=== PATIENT | female | born 2000 | race Caucasian/White ===

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

== ENCOUNTER → 2018-04-18 | Outpatient (CLI) | payer OTHER ==
[~2018-04-18] MED LIST changes: +INFLIXIMAB-DYYB 500 MG in SODIUM CHLORIDE 0.9% 250 ML IV NR; -INFLIXIMAB-DYYB 500 MG in SODIUM CHLORIDE 0.9% 250 ML IV ONE; -LORATADINE 10 MG TAB PO PRN; +LORATADINE 10 MG TAB PO STA; +SODIUM CHLORIDE 0.9% 500 ML 500 ML in EMPTY BAG 1 BAG IV PRN; -SODIUM CHLORIDE 0.9% 500 ML in EMPTY BAG 1 BAG IV PRN
[2018-04-18 10:34] VITALS: RESP 16; TEMP 98.6
[2018-04-18 11:44] VITALS: BP 120/88; PULSE 79
== END ==
LOC: PROCWHC3 09:50
PROVIDERS: ATTEND Internal Medicine Gastroenterology
DX: K50.10 Crohn's disease of large intestine without complications (principal)
CPT/HCPCS: 96413; 96415; Q5103

== ENCOUNTER → 2018-06-13 | Outpatient (CLI) | payer OTHER ==
[~2018-06-13] MED LIST changes: +LORATADINE 10 MG TAB PO PRN; -LORATADINE 10 MG TAB PO STA
[2018-06-13 10:37] VITALS: RESP 16; TEMP 98.5
[2018-06-13 12:20] VITALS: BP 104/51; PULSE 68
== END ==
LOC: PROCWHC3 10:14
PROVIDERS: ATTEND Internal Medicine Gastroenterology
DX: K50.10 Crohn's disease of large intestine without complications (principal)
CPT/HCPCS: 96413; 96415; Q5103

== ENCOUNTER 2018-07-25 09:46 | Day surgery (SDC) | payer OTHER ==
[2018-07-23 12:35] VITALS: BMI 32.8
[~2018-07-25 09:46] MED LIST changes: -ACETAMINOPHEN TAB 500 MG TAB PO PRN; -INFLIXIMAB-DYYB 500 MG in SODIUM CHLORIDE 0.9% 250 ML IV NR; +LACTATED RINGERS 1,000 ML IV SCH; -LORATADINE 10 MG TAB PO PRN; -SODIUM CHLORIDE 0.9% 500 ML 500 ML in EMPTY BAG 1 BAG IV PRN
[2018-07-25] MEDS ORDERED: LIDOCAINE 1% 20 ML VIAL (10MG/ML) FOR IV START INTRADERMA ONE (10:28)
[2018-07-25 10:39] VITALS: TEMP 97.7
[2018-07-25] MEDS ORDERED: PROPOFOL 10 MG/ML 20 ML VIAL IV ONE (11:28)
--- NOTE | 2018-07-25 11:49 | P.PCN ---
Date of Procedure: 07/25/18 Procedure(s) Performed: BRIEF HISTORY: Patient is a 18-year-old pleasant 8 female, scheduled for an elective colonoscopy as a part of surveillance of long-standing history of Crohn 's colitis who was diagnosed at age 9. She is presently maintained on Remicade infusions every 8 weeks and Imuran 100 mg daily. Prescription for a surveillance colonoscopy today. PROCEDURE PERFORMED: Colonoscopy with random biopsies and snare polypectomy. PREOPERATIVE DIAGNOSIS: Long-standing history of Crohn's colitis. IV sedation per Anesthesia. PROCEDURE: After informed consent was obtained, the patient, was brought into the endoscopy unit. IV sedation was administered by Anesthesia under continuous monitoring. Digital rectal examination was normal. Initially the Olympus CF- 160 flexible video colonoscope was then inserted in the rectum, gradually advanced into the cecum without any difficulty. Careful examination was performed as the scope was gradually being withdrawn. Ileocecal valve and the appendiceal orifice were visualized and appeared normal. Prep was excellent. Mucosa of the cecum, ascending colon, transverse colon, descending colon, sigmoid colon, and rectum had mucosal changes with erythema, friability granularity and spontaneous oozing consistent with active colitis which are more prominent in the rectum sigmoid colon and descending colon.. Random biopsies were done at every 10 cm intervals from cecum to rectum. In the descending colon was a 1 cm polyp that was removed by snare polypectomy. Retroflexion was performed in the rectum and no lesions were seen. The patient tolerated the procedure well. IMPRESSION: Diffuse active colitis the entire colon more predominant in the rectum, sigmoid and descending colon with mucosal erythema, friability granularity and spontaneous oozing status post multiple biopsies 1 cm descending colon polyp status post polypectomy RECOMMENDATIONS: Findings of this examination were discussed with the patient as well as a family. She was advised to follow with the biopsy results. She will continue with Remicade infusions as well as Imuran 20 mg daily. We'll start her on prednisone 30 mg daily and was advised to taper by 5 mg every 1 week. She'll be seen in the office in 6 weeks..
[2018-07-25 12:10] VITALS: BP 110/55; PULSE 67; RESP 18
== END 2018-07-25 12:37 | disposition home or self-care (01) ==
LOC: ORWHC2ENDO 09:46
PROVIDERS: ATTEND Internal Medicine Gastroenterology
DX: K52.9 Noninfective gastroenteritis and colitis, unspecified (principal); K63.5 Polyp of colon; K50.10 Crohn's disease of large intestine without complications; K63.3 Ulcer of intestine; K21.9 Gastro-esophageal reflux disease without esophagitis; Z79.899 Other long term (current) drug therapy
CPT/HCPCS: 81025; 88305; 45380; 45385; J2704

== ENCOUNTER → 2018-08-08 | Outpatient (CLI) | payer OTHER ==
[~2018-08-08] MED LIST changes: +ACETAMINOPHEN TAB 500 MG TAB PO STA; +INFLIXIMAB-DYYB 500 MG in SODIUM CHLORIDE 0.9% 250 ML IV ONE; -LACTATED RINGERS 1,000 ML IV SCH; +LORATADINE 10 MG TAB PO STA; +SODIUM CHLORIDE 0.9% 500 ML 500 ML in EMPTY BAG 1 BAG IV PRN
[2018-08-08 10:00] VITALS: TEMP 98.7
[2018-08-08 10:25] LABS: Basophils # (A) 0.1 k/uL (0-0.2); Basophils % (A) 1 %; Eosinophils # (A) 0.6 k/uL (0-0.7); Eosinophils % (A) 6 %; HCT 35.1 % (34.0-46.0); Hypochromasia Slight; Lymphocytes # (A) 2.3 k/uL (1.0-4.8); Lymphocytes % (A) 23 %; MCH 24.7 pg (25.0-35.0); MCHC 31.2 g/dL (31.0-37.0); MCV 79.2 fL (80.0-100.0); Mean Platelet Volume 6.2; Monocytes # (A) 0.5 k/uL (0-1.0); Monocytes % (A) 5 %; Neutrophils # (A) 6.2 k/uL (1.3-7.7); Neutrophils % (A) 64 %; Platelet Count 438 k/uL (150-450); RBC 4.43 m/uL (3.80-5.40); RDW 14.6 % (11.5-15.5); WBC 9.7 k/uL (4.0-11.0)
[2018-08-08 10:31] LABS: ALT 20 U/L (9-52); AST 13 U/L (14-36); Albumin 3.9 g/dL (3.5-5.0); Alkaline Phosphatase 86 U/L (38-126); Anion Gap 10 mmol/L; Blood Urea Nitrogen 18 mg/dL (7-17); Calcium 8.9 mg/dL (8.4-10.2); Carbon Dioxide 24 mmol/L (22-30); Chloride 107 mmol/L (98-107); Glucose 104 mg/dL (74-99); Sodium 141 mmol/L (137-145); Total Bilirubin 0.3 mg/dL (0.2-1.3); Total Protein 7.5 g/dL (6.3-8.2)
[2018-08-08 11:28] VITALS: RESP 18
[2018-08-08 11:55] VITALS: BP 109/72; PULSE 90
== END | disposition home or self-care (01) ==
LOC: PROCWHC3 09:17
PROVIDERS: ATTEND Internal Medicine Gastroenterology
DX: K50.10 Crohn's disease of large intestine without complications (principal)
CPT/HCPCS: 80053; 85025; 96413; 96415; Q5103

== ENCOUNTER → 2018-10-03 | Outpatient (CLI) | payer OTHER ==
[~2018-10-03] MED LIST changes: +ACETAMINOPHEN TAB 500 MG TAB PO ONE; -ACETAMINOPHEN TAB 500 MG TAB PO STA; +INFLIXIMAB-DYYB 500 MG in SODIUM CHLORIDE 0.9% 200 ML IV NR; -INFLIXIMAB-DYYB 500 MG in SODIUM CHLORIDE 0.9% 250 ML IV ONE; +LORATADINE 10 MG TAB PO ONE; -LORATADINE 10 MG TAB PO STA
[2018-10-03 08:37] VITALS: TEMP 98.5
[2018-10-03 10:04] VITALS: BP 95/69; PULSE 60; RESP 16
== END ==
LOC: PROCWHC3 07:58
PROVIDERS: ATTEND Internal Medicine Gastroenterology
DX: K50.10 Crohn's disease of large intestine without complications (principal)
CPT/HCPCS: 96413; 96415; Q5103

== ENCOUNTER 2018-11-19 09:45 | Emergency (ER) | payer OTHER ==
[2018-11-19 09:50] VITALS: RESP 18
[2018-11-19] MEDS ORDERED: KETOROLAC 30 MG/ML 1 ML VIAL IVP STA (10:28)
[2018-11-19] MEDS ORDERED: SODIUM CHLORIDE 0.9% 1,000 ML IV STA ×2 (10:28)
--- NOTE | 2018-11-19 10:31 | ED ---
Abdominal Pain HPI - General Chief Complaint: Abdominal Pain Stated Complaint: SOB, ankle pain Time Seen by Provider: 11/19/18 10:02 Source: patient, RN notes reviewed, old records reviewed Mode of arrival: ambulatory Limitations: no limitations - History of Present Illness Initial Comments: Patient is a 18-year-old female presents emergency department today for evaluation with complaints of left sided pleuritic chest pain and taking a deep breath, and left upper abdominal pain. She reports she's had symptoms for the past 2 days. Patient states that she has had no history of blood clots. Surgical history for cleft palate, as well as a history of Crohn's disease. She states this does not feel like her previous Crohn's flareup such pain is typ ically lower. Patient states that she's had no hemoptysis. She is on Depoprovera. She is a nonsmoker. - Related Data Home Medications Medication Instructions Recorded Confirmed Ranitidine HCl 150 mg PO BID 08/26/15 11/19/18 azaTHIOprine [Imuran] 100 mg PO DAILY 08/26/15 11/19/18 Medroxyprogesterone Acetate 150 mg IM Q84D 11/19/18 11/19/18 [Depo-Provera] Previous Rx's Medication Instructions Recorded Nitrofurantoin Monohyd/M-Cryst 100 mg PO Q12HR #14 cap 11/19/18 [Macrobid] Allergies Allergy/AdvReac Type Severity Reaction Status Date / Time No Known Allergies Allergy Verified 11/19/18 09:57 Review of Systems ROS Statement: Those systems with pertinent positive or pertinent negative responses have been documented in the HPI. ROS Other: All systems not noted in ROS Statement are negative. Past Medical History Past Medical History: GERD/Reflux Additional Past Medical History / Comment(s): Crohns dx. COLITIS AND POLYPS. History of Any Multi-Drug Resistant Organisms: None Reported Additional Past Surgical History / Comment(s): cleft pallet. colonoscopies WITH 3 POLYPS REMOVED. Past Anesthesia/Blood Transfusion Reactions: No Reported Reaction Past Psychological History: No Psychological Hx Reported Smoking Status: Never smoker Past Alcohol Use History: None Reported Past Drug Use History: None Reported - Past Family History Mother Family Medical History: No Reported History General Exam - General Exam Comments Initial Comments: This is a 18-year-old female. Alert and oriented. No distress. Limitations: no limitations General appearance: alert, in no apparent distress Head exam: Present: atraumatic, normocephalic, normal inspection Eye exam: Present: normal appearance, PERRL, EOMI. Absent: scleral icterus, conjunctival injection, periorbital swelling ENT exam: Present: normal exam, mucous membranes moist Neck exam: Present: normal inspection. Absent: tenderness, meningismus, lymphadenopathy Respiratory exam: Present: normal lung sounds bilaterally. Absent: respiratory distress, wheezes, rales, rhonchi, stridor Cardiovascular Exam: Present: regular rate, normal rhythm, normal heart sounds. Absent: systolic murmur, diastolic murmur, rubs, gallop, clicks GI/Abdominal exam: Present: soft, normal bowel sounds. Absent: distended, tenderness, guarding, rebound, rigid Extremities exam: Present: normal inspection, full ROM, normal capillary refill. Absent: tenderness, pedal edema, joint swelling, calf tenderness Back exam: Present: normal inspection Neurological exam: Present: alert, oriented X3, CN II-XII intact Psychiatric exam: Present: normal mood Skin exam: Present: warm, dry, intact, normal color. Absent: rash Course Vital Signs 11/19/18 11/19/18 11/19/18 09:47 11:30 12:00 Temperature 98.5 F Pulse Rate 107 H Respiratory 18 18 18 Rate Blood Pressure 115/61 109/67 106/57 O2 Sat by Pulse 98 98 100 Oximetry 11/19/18 11/19/18 11/19/18 12:30 13:02 13:30 Temperature Pulse Rate 90 90 Respiratory 18 18 18 Rate Blood Pressure 105/63 105/60 O2 Sat by Pulse 97 97 Oximetry Medical Decision Making - Medical Decision Making Patient is a 18-year-old female presents emergency department today for evaluation for left-sided pleuritic chest pain taking breath. She states that said no nausea or vomiting. Patient is given IV fluids are obtained. Urinalysis did show some red blood cells and white blood cells. She denies any specific back pain or concerns for kidney stone type eating. Patient will EKG is reviewed and negative for any acute changes. Patient's time or was elevated. CT [place] [facility] chest was completed to rule out PE. This was negative for PE. Patient informed that her pain is most likely musculoskeletal in nature. I discussed that Patient continue Motrin Tylenol. I will put the Patient on antibiotics to treat for UTI until urine culture completed. Patient understands treatment plan will comply. Return parameters were discussed. - Lab Data Result diagrams: 11/19/18 10:50 11/19/18 10:50 Lab Results 11/19/18 11/19/18 11/19/18 Range/Units 10:50 10:50 10:50 WBC 10.1 (4.0-11.0) k/uL RBC 4.43 (3.80-5.40) m/uL Hgb 10.4 L (11.4-16.0) gm/dL Hct 32.6 L (34.0-46.0) % MCV 73.5 L (80.0-100.0) fL MCH 23.5 L (25.0-35.0) pg MCHC 32.0 (31.0-37.0) g/dL RDW 13.6 (11.5-15.5) % Plt Count 498 H (150-450) k/uL Neutrophils % 77 % Lymphocytes % 13 % Monocytes % 5 % Eosinophils % 4 % Basophils % 1 % Neutrophils # 7.8 H (1.3-7.7) k/uL Lymphocytes # 1.3 (1.0-4.8) k/uL Monocytes # 0.5 (0-1.0) k/uL Eosinophils # 0.4 (0-0.7) k/uL Basophils # 0.1 (0-0.2) k/uL Hypochromasia Moderate Microcytosis Slight PT 10.0 (9.0-12.0) sec INR 0.9 (<1.2) APTT 25.0 (22.0-30.0) sec D-Dimer 3.23 H (<0.60) mg/L FEU Sodium 140 (137-145) mmol/L Potassium 4.4 (3.5-5.1) mmol/L Chloride 107 (98-107) mmol/L Carbon Dioxide 22 (22-30) mmol/L Anion Gap 11 mmol/L BUN 9 (7-17) mg/dL Creatinine 0.73 (0.52-1.04) mg/dL Est GFR (CKD-EPI)AfAm >90 (>60 ml/min/1.73 sqM) Est GFR (CKD-EPI)NonAf >90 (>60 ml/min/1.73 sqM) Glucose 94 (74-99) mg/dL Calcium 9.0 (8.4-10.2) mg/dL Total Bilirubin 0.3 (0.2-1.3) mg/dL AST 18 (14-36) U/L ALT <6 L (9-52) U/L Alkaline Phosphatase 73 (38-126) U/L Total Protein 7.6 (6.3-8.2) g/dL Albumin 3.9 (3.5-5.0) g/dL Amylase 59 (30-110) U/L Lipase 117 (23-300) U/L Urine Color Urine Appearance (Clear) Urine pH (5.0-8.0) Ur Specific [place] (1.001-1.035) Urine Protein (Negative) Urine Glucose (UA) (Negative) Urine Ketones (Negative) Urine Blood (Negative) Urine Nitrite (Negative) Urine Bilirubin (Negative) Urine Urobilinogen (<2.0) mg/dL Ur Leukocyte Esterase (Negative) Urine RBC (0-5) /hpf Urine WBC (0-5) /hpf Ur Squamous Epith Cells (0-4) /hpf Urine Bacteria (None) /hpf Urine Mucus (None) /hpf 11/19/18 Range/Units 10:50 WBC (4.0-11.0) k/uL RBC (3.80-5.40) m/uL Hgb (11.4-16.0) gm/dL Hct (34.0-46.0) % MCV (80.0-100.0) fL MCH (25.0-35.0) pg MCHC (31.0-37.0) g/dL RDW (11.5-15.5) % Plt Count (150-450) k/uL Neutrophils % % Lymphocytes % % Monocytes % % Eosinophils % % Basophils % % Neutrophils # (1.3-7.7) k/uL Lymphocytes # (1.0-4.8) k/uL Monocytes # (0-1.0) k/uL Eosinophils # (0-0.7) k/uL Basophils # (0-0.2) k/uL Hypochromasia Microcytosis PT (9.0-12.0) sec INR (<1.2) APTT (22.0-30.0) sec D-Dimer (<0.60) mg/L FEU Sodium (137-145) mmol/L Potassium (3.5-5.1) mmol/L Chloride (98-107) mmol/L Carbon Dioxide (22-30) mmol/L Anion Gap mmol/L BUN (7-17) mg/dL Creatinine (0.52-1.04) mg/dL Est GFR (CKD-EPI)AfAm (>60 ml/min/1.73 sqM) Est GFR (CKD-EPI)NonAf (>60 ml/min/1.73 sqM) Glucose (74-99) mg/dL Calcium (8.4-10.2) mg/dL Total Bilirubin (0.2-1.3) mg/dL AST (14-36) U/L ALT (9-52) U/L Alkaline Phosphatase (38-126) U/L Total Protein (6.3-8.2) g/dL Albumin (3.5-5.0) g/dL Amylase (30-110) U/L Lipase (23-300) U/L Urine Color Yellow Urine Appearance Cloudy H (Clear) Urine pH 5.5 (5.0-8.0) Ur Specific [place] 1.038 H (1.001-1.035) Urine Protein 1+ H (Negative) Urine Glucose (UA) Negative (Negative) Urine Ketones Negative (Negative) Urine Blood Moderate H (Negative) Urine Nitrite Negative (Negative) Urine Bilirubin Negative (Negative) Urine Urobilinogen <2.0 (<2.0) mg/dL Ur Leukocyte Esterase Moderate H (Negative) Urine RBC 21 H (0-5) /hpf Urine WBC 7 H (0-5) /hpf Ur Squamous Epith Cells 16 H (0-4) /hpf Urine Bacteria Occasional H (None) /hpf Urine Mucus Many H (None) /hpf 11/19/18 11:20 EKG performed at 1104 shows normal sinus rhythm possible inferior infarct age indeterminate. Ventricular rate of 77 bpm. Was 1:30 milliseconds. QS duration 70 ms. QT QTc is 394/445 ms. No evidence of ST elevation. - Radiology Data Radiology results: report reviewed Normal chest x-ray. CT [facility] chest is negative for PE. Disposition Clinical Impression: Pleuritic chest pain, UTI (urinary tract infection) Disposition: HOME SELF-CARE Condition: Good Instructions (If sedation given, give patient instructions): Pleurisy (ED), Urinary Tract Infection in Women (ED) Additional Instructions: Patient is to take Motrin Tylenol for pain. Complete her antibiotic prescription. Return to the emergency department if any alarming signs or symptoms occur. Prescriptions: Nitrofurantoin Monohyd/M-Cryst [Macrobid] 100 mg PO Q12HR #14 cap Is patient prescribed a controlled substance at d/c from ED?: No Referrals: Barry Cabral DO [Primary Care Provider] - 1-2 days Time of Disposition: 13:43
[2018-11-19 11:06] LABS: Basophils # (A) 0.1 k/uL (0-0.2); Basophils % (A) 1 %; Eosinophils # (A) 0.4 k/uL (0-0.7); Eosinophils % (A) 4 %; HCT 32.6 % (34.0-46.0); HGB 10.4 gm/dL (11.4-16.0); Hypochromasia Moderate; Lymphocytes # (A) 1.3 k/uL (1.0-4.8); Lymphocytes % (A) 13 %; MCH 23.5 pg (25.0-35.0); MCV 73.5 fL (80.0-100.0); Mean Platelet Volume 6.4; Microcytosis Slight; Monocytes # (A) 0.5 k/uL (0-1.0); Monocytes % (A) 5 %; Neutrophils # (A) 7.8 k/uL (1.3-7.7); Neutrophils % (A) 77 %; Platelet Count 498 k/uL (150-450); RBC 4.43 m/uL (3.80-5.40); RDW 13.6 % (11.5-15.5); WBC 10.1 k/uL (4.0-11.0)
[2018-11-19 11:11] LABS: Appearance,Urine Cloudy (Clear); Bacteria,Urine Occasional /hpf; Bilirubin,Urine Negative (Negative); Blood,Urine Moderate (Negative); Color,Urine Yellow; Glucose,Urine (UA) Negative (Negative); Ketones,Urine Negative (Negative); Leukocyte Esterase,Urine Moderate (Negative); Mucus,Urine Many /hpf; Nitrite,Urine Negative (Negative); PH, Urine 5.5 (5.0-8.0); Protein,Urine 1+ (Negative); RBC,Urine 21 /hpf (0-5); Specific Gravity,Urine 1.038 (1.001-1.035); Squamous Epithelial Cell,Urine 16 /hpf (0-4); Urobilinogen,Urine <2.0 mg/dL (<2.0); WBC,Urine 7 /hpf (0-5)
[2018-11-19 11:21] LABS: ALT <6 U/L (9-52); AST 18 U/L (14-36); Albumin 3.9 g/dL (3.5-5.0); Alkaline Phosphatase 73 U/L (38-126); Amylase 59 U/L (30-110); Anion Gap 11 mmol/L; Blood Urea Nitrogen 9 mg/dL (7-17); Carbon Dioxide 22 mmol/L (22-30); Chloride 107 mmol/L (98-107); Glucose 94 mg/dL (74-99); Lipase 117 U/L (23-300); Potassium 4.4 mmol/L (3.5-5.1); Sodium 140 mmol/L (137-145); Total Bilirubin 0.3 mg/dL (0.2-1.3); Total Protein 7.6 g/dL (6.3-8.2)
--- NOTE | 2018-11-19 11:24 | XR ---
EXAMINATION TYPE: XR chest 2V DATE OF EXAM: 11/19/2018 COMPARISON: NONE HISTORY: Abdominal and chest pain TECHNIQUE: Frontal and lateral views of the chest are obtained. FINDINGS: There is no focal air space opacity, pleural effusion, or pneumothorax seen. The cardiac silhouette size is within normal limits. The osseous structures are intact. IMPRESSION: No acute cardiopulmonary process.
[2018-11-19 11:26] LABS: INR 0.9 (<1.2)
[2018-11-19 11:58] LABS: D-Dimer 3.23 mg/L FEU (<0.60)
--- NOTE | 2018-11-19 12:41 | CT ---
EXAMINATION TYPE: CT angio chest DATE OF EXAM: 11/19/2018 COMPARISON: NONE HISTORY: SOB, Chest pain, elevated d dimer CT DLP: 264.8 mGycm. Automated Exposure Control for Dose Reduction was Utilized. CONTRAST: CTA scan of the thorax is performed with IV Contrast, patient injected with 80 mL of Isovue 370, pulm onary embolism protocol. MIP Images are created on CT scanner and reviewed. FINDINGS: LUNGS: The lungs are grossly clear, there is no concerning parenchymal mass or nodule identified. T here is no pleural effusion or pneumothorax seen. The tracheobronchial tree is patent. MEDIASTINUM: There is satisfactory enhancement of the pulmonary artery and its branches, there is no CT evidence for pulmonary embolism. There are no greater than 1 cm hilar or mediastinal lymph nodes. No cardiomegaly or pericardial effusion is seen. Some residual soft tissue anterior superior media stinum is felt to reflect residual thymus tissue axial image 36 OTHER: No additional significant abnormality is seen. IMPRESSION: No CT evidence for acute pulmonary embolism. No acute pulmonary process.
[2018-11-19 13:54] VITALS: BP 104/59; PULSE 75; TEMP 97.3
== END 2018-11-19 13:54 | disposition home or self-care (01) ==
LOC: EC 09:45
DX: N39.0 Urinary tract infection, site not specified (principal); R07.1 Chest pain on breathing; K21.9 Gastro-esophageal reflux disease without esophagitis; K50.90 Crohn's disease, unspecified, without complications; Z79.899 Other long term (current) drug therapy
CPT/HCPCS: 36415; 93005; 85379; 80053; 82150; 83690; 85025; 85610; 85730; 81001; 71046; 71275; 99285; 96374; 96361 ×3; J1885; Q9967

== ENCOUNTER → 2018-11-28 | Outpatient (CLI) | payer OTHER ==
[~2018-11-28] MED LIST changes: -ACETAMINOPHEN TAB 500 MG TAB PO ONE; -INFLIXIMAB-DYYB 500 MG in SODIUM CHLORIDE 0.9% 200 ML IV NR; +INFLIXIMAB-DYYB 500 MG in SODIUM CHLORIDE 0.9% 250 ML IV NR; -LORATADINE 10 MG TAB PO ONE
[2018-11-28 09:13] VITALS: TEMP 98.5
[2018-11-28 10:10] VITALS: RESP 18
[2018-11-28 10:42] VITALS: BP 108/57; PULSE 87
== END | disposition home or self-care (01) ==
LOC: PROCWHC3 08:52
PROVIDERS: ATTEND Internal Medicine Gastroenterology
DX: K50.10 Crohn's disease of large intestine without complications (principal)
CPT/HCPCS: 96413; 96415; Q5103

== ENCOUNTER → 2019-01-23 | Outpatient (CLI) | payer OTHER ==
[2019-01-23 08:33] VITALS: TEMP 98.6
[2019-01-23 08:51] LABS: Anisocytosis Slight; HCT 32.8 % (34.0-46.0); Hypochromasia Marked; MCHC 30.4 g/dL (31.0-37.0); MCV 72.2 fL (80.0-100.0); Microcytosis Marked; Platelet Count 594 k/uL (150-450); RBC 4.54 m/uL (3.80-5.40); RDW 19.5 % (11.5-15.5)
[2019-01-23 09:03] LABS: ALT 12 U/L (9-52); AST 13 U/L (14-36); African American GFR (CKD) >90 (>60 ml/min/1.73 sqM); Alkaline Phosphatase 58 U/L (38-126); Anion Gap 10 mmol/L; Blood Urea Nitrogen 14 mg/dL (7-17); Calcium 9.1 mg/dL (8.4-10.2); Carbon Dioxide 29 mmol/L (22-30); Chloride 103 mmol/L (98-107); Glucose 72 mg/dL (74-99); Potassium 4.3 mmol/L (3.5-5.1); Sodium 142 mmol/L (137-145); Total Bilirubin 0.4 mg/dL (0.2-1.3); Total Protein 7.7 g/dL (6.3-8.2)
[2019-01-23 09:54] VITALS: BP 91/59; PULSE 88; RESP 18
[2019-01-23 11:57] LABS: C Reactive Protein 25.7 mg/L (<10.0)
[2019-01-23 12:09] LABS: Eosinophils # (M) 0.72 k/uL (0-0.7); Lymphocytes # (M) 2.34 k/uL (1.0-4.8); Monocytes # (M) 0.72 k/uL (0-1.0); Neutrophils % (M) 58 %; Nucleated Red Blood Cells 0 /100 WBC (0-0); Poikilocytosis (M) Present; Total Cells Counted 100
[2019-01-23 12:52] LABS: Erythrocyte Sedimentation Rate 36 mm/hr (0-20)
[2019-01-23 18:51] LABS: Iron Saturation 10.67 (12.00-45.00)
== END | disposition home or self-care (01) ==
LOC: PROCWHC3 08:02
PROVIDERS: ATTEND Internal Medicine Gastroenterology
DX: K50.10 Crohn's disease of large intestine without complications (principal); D50.9 Iron deficiency anemia, unspecified
CPT/HCPCS: 80053; 85652; 82728; 83540; 83550; 85027; 86140; 96413; 96415; Q5103

== ENCOUNTER → 2019-03-20 | Outpatient (CLI) | payer OTHER ==
[2019-03-20 09:19] VITALS: TEMP 98
[2019-03-20 10:05] VITALS: RESP 18
[2019-03-20 10:49] VITALS: BP 107/72; PULSE 65
== END ==
LOC: PROCWHC3 08:18
PROVIDERS: ATTEND Internal Medicine Gastroenterology
DX: K50.10 Crohn's disease of large intestine without complications (principal); D50.9 Iron deficiency anemia, unspecified
CPT/HCPCS: 96413; 96415; 36415; Q5103

== ENCOUNTER → 2019-05-27 | Outpatient (CLI) | payer OTHER ==
[2019-05-27 09:10] VITALS: RESP 16; TEMP 97.8
[2019-05-27 10:24] VITALS: BP 101/68; PULSE 72
== END | disposition home or self-care (01) ==
LOC: PROCWHC3 08:59
PROVIDERS: ATTEND Internal Medicine Gastroenterology
DX: K50.10 Crohn's disease of large intestine without complications (principal)
CPT/HCPCS: 96413; 96415; Q5103

== ENCOUNTER → 2019-08-03 | Outpatient (CLI) | payer OTHER ==
[2019-08-03 07:58] VITALS: TEMP 97.8
[2019-08-03 09:30] VITALS: RESP 16
[2019-08-03 10:03] VITALS: BP 99/66; PULSE 79
== END | disposition home or self-care (01) ==
LOC: PROCWHC3 07:47
PROVIDERS: ATTEND Internal Medicine Gastroenterology
DX: K50.10 Crohn's disease of large intestine without complications (principal)
CPT/HCPCS: 96413; 96415; Q5103

== ENCOUNTER → 2019-09-28 | Outpatient (CLI) | payer OTHER ==
[2019-09-28 09:15] VITALS: TEMP 98.5
[2019-09-28 09:59] VITALS: RESP 16
[2019-09-28 10:39] VITALS: BP 98/50; PULSE 75
== END | disposition home or self-care (01) ==
LOC: PROCWHC3 08:59
PROVIDERS: ATTEND Internal Medicine Gastroenterology
DX: K50.10 Crohn's disease of large intestine without complications (principal)
CPT/HCPCS: 96413; 96415; Q5103

== ENCOUNTER → 2019-10-09 | Outpatient (CLI) | payer OTHER ==
[2019-10-09 11:27] LABS: Anisocytosis Slight; Basophils # (A) 0.1 k/uL (0-0.2); Basophils % (A) 1 %; Eosinophils # (A) 0.2 k/uL (0-0.7); Eosinophils % (A) 2 %; HGB 12.2 gm/dL (11.4-16.0); Lymphocytes # (A) 1.8 k/uL (1.0-4.8); Lymphocytes % (A) 23 %; MCH 25.5 pg (25.0-35.0); MCHC 32.9 g/dL (31.0-37.0); MCV 77.4 fL (80.0-100.0); Mean Platelet Volume 6.7; Microcytosis Slight; Monocytes # (A) 0.5 k/uL (0-1.0); Monocytes % (A) 7 %; Neutrophils % (A) 64 %; Platelet Count 389 k/uL (150-450); RBC 4.79 m/uL (3.80-5.40); RDW 16.2 % (11.5-15.5); WBC 7.9 k/uL (3.8-10.6)
[2019-10-09 15:01] LABS: African American GFR (CKD) 105.9 (60.0-200.0); Albumin 4.3 g/dL (3.80-4.90); Albumin/Globulin Ratio 1.23 (1.60-3.17); Anion Gap 9.3 mmol/L (4.00-12.00); BUN/Creat Ratio 12.22 Ratio (12.00-20.00); C Reactive Protein 1.3 mg/dL (0.0-0.8); Calcium 9.5 mg/dL (8.7-10.3); Carbon Dioxide 22.7 mmol/L (21.6-31.8); Globulin 3.5 g/dL (1.6-3.3); Non-African American GFR(CKD) 91.4 (60.0-200.0); Potassium 4.3 mmol/L (3.5-5.5); Total Bilirubin 0.3 mg/dL (0.3-1.2); Total Protein 7.8 g/dL (6.2-8.2)
[2019-10-09 15:52] LABS: Hepatitis B Surface Antigen Non-Reactive (Non-Reactive); Hepatitis C IgG Antibody Non-Reactive (Non-Reactive)
== END | disposition home or self-care (01) ==
LOC: LABWHC1 10:53
PROVIDERS: ATTEND Internal Medicine Gastroenterology
DX: N91.2 Amenorrhea, unspecified (principal); K50.90 Crohn's disease, unspecified, without complications
CPT/HCPCS: 36415; 80053; 84702; 85025; 86140; 86480; 86704; 86803; 87340

== ENCOUNTER → 2020-03-21 | Outpatient (CLI) | payer OTHER ==
--- NOTE | 2020-03-21 14:19 | XR ---
EXAMINATION TYPE: XR foot complete LT DATE OF EXAM: 03/21/2020 COMPARISON: NONE HISTORY: Pain TECHNIQUE: Three views are submitted. FINDINGS: The osseous structures are intact. There is no acute fracture or dislocation. Joint spaces are p reserved. IMPRESSION: 1. No acute fracture or dislocation. If symptoms persist, follow-up exam in 7 to 10 days could be ob tained.
== END | disposition home or self-care (01) ==
LOC: RADXRMAIN 11:47
PROVIDERS: ATTEND Nurse Practitioner Family
DX: R60.0 Localized edema (principal)

== ENCOUNTER → 2020-05-10 | Outpatient (CLI) | payer OTHER ==
[2020-05-10 12:15] LABS: Basophils % (A) 1 %; Eosinophils # (A) 0.3 k/uL (0-0.7); Eosinophils % (A) 5 %; HCT 32.3 % (34.0-46.0); HGB 9.6 gm/dL (11.4-16.0); Hypochromasia Moderate; Lymphocytes % (A) 16 %; MCH 23.1 pg (25.0-35.0); MCHC 29.8 g/dL (31.0-37.0); MCV 77.6 fL (80.0-100.0); Mean Platelet Volume 6.1; Microcytosis Slight; Monocytes # (A) 0.3 k/uL (0-1.0); Monocytes % (A) 5 %; Neutrophils # (A) 4.4 k/uL (1.3-7.7); Neutrophils % (A) 73 %; Platelet Count 677 k/uL (150-450); RBC 4.16 m/uL (3.80-5.40); RDW 15.5 % (11.5-15.5); WBC 6.1 k/uL (3.8-10.6)
[2020-05-10 19:05] LABS: African American GFR (CKD) 121.3 (60.0-200.0); Albumin 3.6 g/dL (3.80-4.90); Anion Gap 6.7 mmol/L (4.00-12.00); BUN/Creat Ratio 12.5 Ratio (12.00-20.00); C Reactive Protein 9.8 mg/dL (0.0-0.8); Calcium 8.9 mg/dL (8.7-10.3); Carbon Dioxide 27.3 mmol/L (21.6-31.8); Chol/HDL Ratio 3.91; Globulin 3.6 g/dL (1.6-3.3); Non-African American GFR(CKD) 104.6 (60.0-200.0); Potassium 4.5 mmol/L (3.5-5.5); Total Bilirubin 0.2 mg/dL (0.3-1.2); Total Protein 7.2 g/dL (6.2-8.2)
[2020-05-10 19:07] LABS: Hemoglobin A1C 5.4 % (4.0-6.0)
== END | disposition home or self-care (01) ==
LOC: LABWHC1 10:09
PROVIDERS: ATTEND Internal Medicine Gastroenterology
DX: Z00.00 Encounter for general adult medical examination without abnormal findings (principal); K50.90 Crohn's disease, unspecified, without complications
CPT/HCPCS: 36415; 80053; 80061; 83036; 85025; 86140

== ENCOUNTER 2020-07-15 15:33 | Emergency (ER) | payer OTHER ==
[2020-07-15 15:38] VITALS: BP 121/83; RESP 18; TEMP 98.2
--- NOTE | 2020-07-15 16:38 | ED ---
General Adult HPI - General Chief complaint: Recheck/Abnormal Lab/Rx Stated complaint: fistula Time Seen by Provider: 07/15/20 15:35 Source: patient, RN notes reviewed, old records reviewed Mode of arrival: ambulatory Limitations: no limitations - History of Present Illness Initial comments: This is a 20-year-old female presents emergency department with past medical history significant for Crohn's disease. 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 Patient states this happens quite often works as well as a little starts to drain. Patient states this last time it is swelling up and is not draining it is on the left but she just lateral to the anus. Patient states it is getting more more painful. Patient did not know what elsecame to emergency department. Patient denies any fever chills per patient denies any problems with bowel movements. Patient states there has been no stool coming out of it and in the past she says she only has had pus coming out of it. Patient describes what seems to be more of an abscess and fistula but she has been told she states that it wasn't fistula. - Related Data Home Medications Medication Instructions Recorded Confirmed azaTHIOprine [Imuran] 100 mg PO DAILY 08/26/15 07/12/20 Medroxyprogesterone Acetate 150 mg IM Q84D 11/19/18 07/12/20 [Depo-Provera] Certolizumab Pegol [Cimzia] 400 mg IV DIRECTED 07/12/20 07/12/20 Ergocalciferol [Vitamin D2 (1250 1,250 mcg PO MO 07/15/20 07/15/20 Mcg = 45730 Iu)] Omeprazole 20 mg PO DAILY 07/15/20 07/15/20 Previous Rx's Medication Instructions Recorded Ciprofloxacin HCl [Cipro] 500 mg PO Q12HR #20 tablet 07/15/20 metroNIDAZOLE [Flagyl] 500 mg PO TID #21 tab 07/15/20 Allergies Allergy/AdvReac Type Severity Reaction Status Date / Time No Known Allergies Allergy Verified 07/15/20 15:38 Review of Systems ROS Statement: Those systems with pertinent positive or pertinent negative responses have been documented in the HPI. ROS Other: All systems not noted in ROS Statement are negative. Past Medical History Past Medical History: Blood Disorder, GERD/Reflux Additional Past Medical History / Comment(s): Crohns dx. COLITIS AND POLYPS. IRON DEFICIENCY ANEMIA. History of Any Multi-Drug Resistant Organisms: None Reported Additional Past Surgical History / Comment(s): cleft pallet. colonoscopies WITH 3 POLYPS REMOVED. Past Anesthesia/Blood Transfusion Reactions: No Reported Reaction Past Psychological History: No Psychological Hx Reported Smoking Status: Never smoker Past Alcohol Use History: None Reported Past Drug Use History: None Reported - Past Family History Mother Family Medical History: No Reported History General Exam - General Exam Comments Initial Comments: GENERAL: Patient is well-developed and well-nourished. Patient is nontoxic and well- hydrated and is in mild distress. ENT: Neck is soft and supple. No significant lymphadenopathy is noted. EYES: The sclera were anicteric and conjunctiva were pink and moist. Extraocular movements were intact and pupils were equal round and reactive to light. ABDOMEN: Soft and nontender with normal bowel sounds. SKIN: Patient has an abscess on the left cheek at the 9 o'clock position relative to the anus. The area measures about 3 cm in diameter. NEUROLOGIC: Patient is alert and oriented x3. Cranial nerves II through XII are grossly intact. Motor and sensory are also intact. Normal speech, volume and content. Symmetrical smile. MUSCULOSKELETAL: Normal extremities with adequate strength and full range of motion. PSYCHIATRIC: Normal psychiatric evaluation. Limitations: no limitations Course Vital Signs 07/15/20 15:36 Temperature 98.2 F Pulse Rate 108 H Respiratory 18 Rate Blood Pressure 121/83 O2 Sat by Pulse 100 Oximetry Procedures - Incision & Drainage Consent Obtained: verbal consent Site: buttock I&D Cleaning Method: Betadine Needle Aspiration Performed?: Yes Irrigation Performed?: No I&D Drainage Obtained: Pus Culture Obtained?: Yes Patient Tolerated Procedure: well (I removed about 10 mL of pus.) Disposition Clinical Impression: Abscess of buttock, left Disposition: HOME SELF-CARE Condition: Good Instructions (If sedation given, give patient instructions): Abscess Incision and Drainage (ED) Prescriptions: Ciprofloxacin HCl [Cipro] 500 mg PO Q12HR #20 tablet metroNIDAZOLE [Flagyl] 500 mg PO TID #21 tab Is patient prescribed a controlled substance at d/c from ED?: No Referrals: Barry Cabral DO [Primary Care Provider] - 1-2 days Time of Disposition: 16:27
[2020-07-15 16:53] VITALS: PULSE 100
== END 2020-07-15 16:59 | disposition home or self-care (01) ==
LOC: EC 15:33
DX: L02.31 Cutaneous abscess of buttock (principal); K21.9 Gastro-esophageal reflux disease without esophagitis; L02.01 Cutaneous abscess of face; Z79.899 Other long term (current) drug therapy
CPT/HCPCS: 10060; 87070; 87205; 99283

== ENCOUNTER → 2020-09-05 | Outpatient (CLI) | payer OTHER | END | disposition home or self-care (01) | LOC: LABWHC1 16:20 | PROVIDERS: ATTEND Family Medicine | DX: Z20.822 Contact with and (suspected) exposure to COVID-19 (principal) | CPT/HCPCS: U0003; C9803 ==

== ENCOUNTER 2021-07-23 15:27 | Emergency (ER) | payer OTHER ==
[2021-07-23 15:49] VITALS: BP 106/68; PULSE 97; RESP 18; TEMP 97.8
[2021-07-23] MEDS ORDERED: SODIUM CHLORIDE 0.9% 500 ML 500 ML IV STA (16:02)
--- NOTE | 2021-07-23 16:10 | ED ---
General Adult HPI - General Chief complaint: Vaginal Bleeding Stated complaint: Abd pain-5 weeks preg. Time Seen by Provider: 07/23/21 16:00 Source: patient, RN notes reviewed Mode of arrival: ambulatory Limitations: no limitations - History of Present Illness Initial comments: This is a well-appearing 21-year-old female that presents to the emergency room with complaints of vaginal spotting that started today. She is not passing any clots. She does have some lower abdominal cramping. She states she took at home test that was positive. Her last menstrual period was 06/18/2021. Denies any dysuria, nausea, vomiting diarrhea or fevers. She does have a history of Crohn which she receives injections for however she did not get it last month when it was due. She states this is her first . -: days(s) (1) Severity scale (1-10): 6 Quality: other (Cramping) Consistency: intermittent Improves with: none Worsens with: none Associated Symptoms: other (Vaginal bleeding) Treatments Prior to Arrival: none - Related Data Home Medications Medication Instructions Recorded Confirmed azaTHIOprine [Imuran] 100 mg PO DAILY 08/26/15 10/21/20 Medroxyprogesterone Acetate 150 mg IM Q84D 11/19/18 10/21/20 [Depo-Provera] Certolizumab Pegol [Cimzia] 400 mg IV Q28D 07/12/20 10/21/20 Ergocalciferol [Vitamin D2 (1250 1,250 mcg PO MO 07/15/20 10/21/20 Mcg = 52687 Iu)] Omeprazole 20 mg PO DAILY 07/15/20 10/21/20 Previous Rx's Medication Instructions Recorded Ciprofloxacin HCl [Cipro] 500 mg PO Q12HR #20 tablet 07/15/20 metroNIDAZOLE [Flagyl] 500 mg PO TID #21 tab 07/15/20 Allergies Allergy/AdvReac Type Severity Reaction Status Date / Time No Known Allergies Allergy Verified 07/23/21 15:49 Review of Systems ROS Statement: Those systems with pertinent positive or pertinent negative responses have been documented in the HPI. ROS Other: All systems not noted in ROS Statement are negative. Past Medical History Past Medical History: Blood Disorder, GERD/Reflux Additional Past Medical History / Comment(s): Crohns dx. COLITIS AND POLYPS. IRON DEFICIENCY ANEMIA. History of Any Multi-Drug Resistant Organisms: None Reported Additional Past Surgical History / Comment(s): cleft pallet. colonoscopies WITH 3 POLYPS REMOVED. Past Anesthesia/Blood Transfusion Reactions: No Reported Reaction Past Psychological History: No Psychological Hx Reported Smoking Status: Vaper Past Alcohol Use History: None Reported Past Drug Use History: None Reported - Past Family History Mother Family Medical History: No Reported History General Exam Limitations: no limitations General appearance: alert, in no apparent distress Head exam: Present: atraumatic, normocephalic, normal inspection Eye exam: Present: normal appearance. Absent: scleral icterus, conjunctival injection ENT exam: Present: normal exam, normal oropharynx, mucous membranes moist, other (Cleft lip repair) Neck exam: Present: normal inspection, full ROM. Absent: tenderness, meningismus, lymphadenopathy, thyromegaly Respiratory exam: Present: normal lung sounds bilaterally. Absent: respiratory distress, wheezes, rales, rhonchi, stridor, chest wall tenderness, accessory muscle use, decreased breath sounds Cardiovascular Exam: Present: regular rate, normal heart sounds GI/Abdominal exam: Present: soft, tenderness (Suprapubic). Absent: distended, guarding, rebound, rigid Extremities exam: Present: normal inspection, full ROM, normal capillary refill. Absent: tenderness, pedal edema, joint swelling, calf tenderness Back exam: Present: normal inspection. Absent: full ROM, tenderness, CVA tenderness (R), CVA tenderness (L), rash noted Neurological exam: Present: alert, oriented X3 Psychiatric exam: Present: normal affect, normal mood Skin exam: Present: warm, dry, intact, normal color. Absent: rash, cyanosis, diaphoretic Course Vital Signs 07/23/21 15:46 Temperature 97.8 F Pulse Rate 97 Respiratory 18 Rate Blood Pressure 106/68 O2 Sat by Pulse 99 Oximetry Medical Decision Making - Medical Decision Making Patient presents to the emergency room stating that she took an at home pregna ncy test and was positive. Her last period was 06/18/2021. She started to have some vaginal spotting and cramping today. Transabdominal US shows no IUP seen. Beta hCG count is less than 2. She states that her pain has resolved. As there is no evidence of , this is likely the patient's menstrual cycle. She will be discharged home to follow up with her primary care doctor. I did discuss with her strict return parameters for increasing pain, fevers or increased bleeding to return to the emergency room. Patient is agreeable to this plan of care. Case discussed with Dr. Jorge - Lab Data Result diagrams: 07/23/21 16:00 07/23/21 16:00 Lab Results 07/23/21 07/23/21 07/23/21 Range/Units 16:00 16:00 16:00 WBC 12.4 H (3.8-10.6) k/uL RBC 4.64 (3.80-5.40) m/uL Hgb 14.1 (11.4-16.0) gm/dL Hct 42.8 (34.0-46.0) % MCV 92.3 (80.0-100.0) fL MCH 30.4 (25.0-35.0) pg MCHC 33.0 (31.0-37.0) g/dL RDW 12.8 (11.5-15.5) % Plt Count 497 H (150-450) k/uL MPV 7.0 Neutrophils % 77 % Lymphocytes % 12 % Monocytes % 6 % Eosinophils % 4 % Basophils % 1 % Neutrophils # 9.6 H (1.3-7.7) k/uL Lymphocytes # 1.4 (1.0-4.8) k/uL Monocytes # 0.8 (0-1.0) k/uL Eosinophils # 0.5 (0-0.7) k/uL Basophils # 0.1 (0-0.2) k/uL PT 10.0 (9.0-12.0) sec INR 0.9 (<1.2) Sodium 138 (137-145) mmol/L Potassium 4.4 (3.5-5.1) mmol/L Chloride 103 (98-107) mmol/L Carbon Dioxide 22 (22-30) mmol/L Anion Gap 13 mmol/L BUN 12 (7-17) mg/dL Creatinine 0.78 (0.52-1.04) mg/dL Est GFR (CKD-EPI)AfAm >90 (>60 ml/min/1.73 sqM) Est GFR (CKD-EPI)NonAf >90 (>60 ml/min/1.73 sqM) Glucose 82 (74-99) mg/dL Calcium 9.0 (8.4-10.2) mg/dL Total Bilirubin 0.6 (0.2-1.3) mg/dL AST 26 (14-36) U/L ALT 9 (4-34) U/L Alkaline Phosphatase 71 (38-126) U/L Lactate Dehydrogenase 738 H (313-618) U/L Total Protein 9.3 H (6.3-8.2) g/dL Albumin 4.5 (3.5-5.0) g/dL HCG, Quant <2.4 mIU/mL Urine Color Urine Appearance (Clear) Urine pH (5.0-8.0) Ur Specific [place] (1.001-1.035) Urine Protein (Negative) Urine Glucose (UA) (Negative) Urine Ketones (Negative) Urine Blood (Negative) Urine Nitrite (Negative) Urine Bilirubin (Negative) Urine Urobilinogen (<2.0) mg/dL Ur Leukocyte Esterase (Negative) Urine RBC (0-5) /hpf Urine WBC (0-5) /hpf Ur Squamous Epith Cells (0-4) /hpf Urine Bacteria (None) /hpf Urine Mucus (None) /hpf Blood Type Blood Type Recheck Bld Type Recheck Status 07/23/21 07/23/21 Range/Units 16:03 16:04 WBC (3.8-10.6) k/uL RBC (3.80-5.40) m/uL Hgb (11.4-16.0) gm/dL Hct (34.0-46.0) % MCV (80.0-100.0) fL MCH (25.0-35.0) pg MCHC (31.0-37.0) g/dL RDW (11.5-15.5) % Plt Count (150-450) k/uL MPV Neutrophils % % Lymphocytes % % Monocytes % % Eosinophils % % Basophils % % Neutrophils # (1.3-7.7) k/uL Lymphocytes # (1.0-4.8) k/uL Monocytes # (0-1.0) k/uL Eosinophils # (0-0.7) k/uL Basophils # (0-0.2) k/uL PT (9.0-12.0) sec INR (<1.2) Sodium (137-145) mmol/L Potassium (3.5-5.1) mmol/L Chloride (98-107) mmol/L Carbon Dioxide (22-30) mmol/L Anion Gap mmol/L BUN (7-17) mg/dL Creatinine (0.52-1.04) mg/dL Est GFR (CKD-EPI)AfAm (>60 ml/min/1.73 sqM) Est GFR (CKD-EPI)NonAf (>60 ml/min/1.73 sqM) Glucose (74-99) mg/dL Calcium (8.4-10.2) mg/dL Total Bilirubin (0.2-1.3) mg/dL AST (14-36) U/L ALT (4-34) U/L Alkaline Phosphatase (38-126) U/L Lactate Dehydrogenase (313-618) U/L Total Protein (6.3-8.2) g/dL Albumin (3.5-5.0) g/dL HCG, Quant mIU/mL Urine Color Yellow Urine Appearance Cloudy H (Clear) Urine pH 6.0 (5.0-8.0) Ur Specific [place] 1.023 (1.001-1.035) Urine Protein Negative (Negative) Urine Glucose (UA) Negative (Negative) Urine Ketones Negative (Negative) Urine Blood Trace H (Negative) Urine Nitrite Negative (Negative) Urine Bilirubin Negative (Negative) Urine Urobilinogen 2.0 (<2.0) mg/dL Ur Leukocyte Esterase Large H (Negative) Urine RBC 1 (0-5) /hpf Urine WBC 8 H (0-5) /hpf Ur Squamous Epith Cells 6 H (0-4) /hpf Urine Bacteria Rare H (None) /hpf Urine Mucus Rare H (None) /hpf Blood Type A Negative Blood Type Recheck No Previous Record Bld Type Recheck Status [facility] ONLY Disposition Clinical Impression: Vaginal bleeding Disposition: HOME SELF-CARE Condition: Good Instructions (If sedation given, give patient instructions): Dysmenorrhea (ED) Additional Instructions: Follow-up with your primary care doctor next week. Return to the emergency room with any new or concerning symptoms including increased pain, fevers or increased bleeding. Is patient prescribed a controlled substance at d/c from ED?: No Referrals: Barry Cabral DO [Primary Care Provider] - 1-2 days Time of Disposition: 18:54
[2021-07-23 17:01] LABS: Basophils # (A) 0.1 k/uL (0-0.2); Basophils % (A) 1 %; Eosinophils # (A) 0.5 k/uL (0-0.7); Eosinophils % (A) 4 %; HCT 42.8 % (34.0-46.0); HGB 14.1 gm/dL (11.4-16.0); Lymphocytes # (A) 1.4 k/uL (1.0-4.8); Lymphocytes % (A) 12 %; MCH 30.4 pg (25.0-35.0); MCV 92.3 fL (80.0-100.0); Monocytes # (A) 0.8 k/uL (0-1.0); Monocytes % (A) 6 %; Neutrophils # (A) 9.6 k/uL (1.3-7.7); Neutrophils % (A) 77 %; Platelet Count 497 k/uL (150-450); RBC 4.64 m/uL (3.80-5.40); RDW 12.8 % (11.5-15.5); WBC 12.4 k/uL (3.8-10.6)
[2021-07-23 17:24] LABS: ALT 9 U/L (4-34); AST 26 U/L (14-36); African American GFR (CKD) >90 (>60 ml/min/1.73 sqM); Albumin 4.5 g/dL (3.5-5.0); Alkaline Phosphatase 71 U/L (38-126); Anion Gap 13 mmol/L; Blood Urea Nitrogen 12 mg/dL (7-17); Carbon Dioxide 22 mmol/L (22-30); Chloride 103 mmol/L (98-107); Glucose 82 mg/dL (74-99); LDH 738 U/L (313-618); Non-African American GFR(CKD) >90 (>60 ml/min/1.73 sqM); Sodium 138 mmol/L (137-145); Total Bilirubin 0.6 mg/dL (0.2-1.3); Total Protein 9.3 g/dL (6.3-8.2)
[2021-07-23 17:42] LABS: HCG,Quantitative Serum <2.4 mIU/mL
[2021-07-23 17:47] LABS: INR 0.9 (<1.2)
[2021-07-23 18:08] LABS: Potassium 4.4 mmol/L (3.5-5.1)
[2021-07-23 18:33] LABS: Appearance,Urine Cloudy (Clear); Bacteria,Urine Rare /hpf; Bilirubin,Urine Negative (Negative); Blood,Urine Trace (Negative); Color,Urine Yellow; Glucose,Urine (UA) Negative (Negative); Ketones,Urine Negative (Negative); Leukocyte Esterase,Urine Large (Negative); Mucus,Urine Rare /hpf; Nitrite,Urine Negative (Negative); Protein,Urine Negative (Negative); RBC,Urine 1 /hpf (0-5); Specific Gravity,Urine 1.023 (1.001-1.035); Squamous Epithelial Cell,Urine 6 /hpf (0-4); WBC,Urine 8 /hpf (0-5)
--- NOTE | 2021-07-23 18:43 | US ---
EXAMINATION TYPE: Transabdominal DATE OF EXAM: 07/23/2021 5:08 PM COMPARISON: NONE CLINICAL HISTORY: 5weeks, bleeding pain. Cramping & spotting x day EXAM PERFORMED: Transabdominal (TA) EXAM MEASUREMENTS: GESTATIONAL AGE / DATING Physician Established: Not yet established Dates by LMP: (5 weeks/0 days) EDC: 03/25/2022 Dates by First Scan: No previous this is first scan Dates by Current Scan for: No IUP seen at this t poppy MATERNAL ANATOMY Uterus: 6.0 x 3.2 x 3.6cm, anteverted Right Ovary: 2.5 x 1.2 x 1.4cm Left Ovary: 2.5 x 1.3 x 2.0cm Post CDS / Adnexa: wnl Presence of free fluid: no Presence of corpus luteal cyst: not seen GESTATION / SURVEY IUP: No IUP seen at this time Date of LMP: 06/18/2021 Beta HcG (if available): Not available at time of exam IMPRESSION: Uterus is empty. No adnexal mass or free fluid.
== END 2021-07-23 19:02 | disposition home or self-care (01) ==
LOC: EC 15:27
DX: N93.9 Abnormal uterine and vaginal bleeding, unspecified (principal); K21.9 Gastro-esophageal reflux disease without esophagitis; F17.290 Nicotine dependence, other tobacco product, uncomplicated
CPT/HCPCS: 36415; 76801; 80053; 81001; 83615; 84702; 85025; 85610; 86900; 86901; 99284

== ENCOUNTER 2022-01-11 22:13 | Emergency (ER) | payer OTHER ==
--- NOTE | 2022-01-11 23:14 | ED ---
Back Pain HPI - General Chief Complaint: Extremity Injury, Lower Stated Complaint: Tailbone Pain Time Seen by Provider: 01/11/22 22:31 Source: patient, family, RN notes reviewed Limitations: no limitations - History of Present Illness Initial Comments: This is a 22-year-old female who presents to the emergency department with lower back pain. States that for the last 2 weeks she has had pain in her tailbone. She cannot recall any injuries or triggers. Believes that this just started to occur one day. The pain has progressed to the point where she is unable to sit. However, she is noted to be sitting comfortably in the examination room. She did ride the "[employer]" at the fair last week, and believes that may have exacerbated the problem as well. She has not taken anything for the pain because she is concerned that she may be . Last menstrual period was 11/18. Denies any fevers, chills, sore throat, cough, dyspnea, chest pain, palpitations, abdominal pain, nausea, vomiting, diarrhea, or headaches. MD Complaint: back pain Onset/Timin -: week(s) Similar Symptoms Previously: No - Related Data Home Medications Medication Instructions Recorded Confirmed azaTHIOprine [Imuran] 100 mg PO DAILY 08/26/15 10/21/20 Medroxyprogesterone Acetate 150 mg IM Q84D 11/19/18 10/21/20 [Depo-Provera] Certolizumab Pegol [Cimzia] 400 mg IV Q28D 07/12/20 10/21/20 Ergocalciferol [Vitamin D2 (1250 1,250 mcg PO MO 07/15/20 10/21/20 Mcg = 02670 Iu)] Omeprazole 20 mg PO DAILY 07/15/20 10/21/20 Previous Rx's Medication Instructions Recorded Ciprofloxacin HCl [Cipro] 500 mg PO Q12HR #20 tablet 07/15/20 metroNIDAZOLE [Flagyl] 500 mg PO TID #21 tab 07/15/20 Allergies Allergy/AdvReac Type Severity Reaction Status Date / Time No Known Allergies Allergy Verified 01/11/22 22:22 Review of Systems ROS Statement: Those systems with pertinent positive or pertinent negative responses have been documented in the HPI. ROS Other: All systems not noted in ROS Statement are negative. Past Medical History Past Medical History: Blood Disorder, GERD/Reflux Additional Past Medical History / Comment(s): Crohns dx. COLITIS AND POLYPS. IRON DEFICIENCY ANEMIA. History of Any Multi-Drug Resistant Organisms: None Reported Additional Past Surgical History / Comment(s): cleft pallet. colonoscopies WITH 3 POLYPS REMOVED. Past Anesthesia/Blood Transfusion Reactions: No Reported Reaction Past Psychological History: No Psychological Hx Reported Smoking Status: Vaper Past Alcohol Use History: None Reported Past Drug Use History: None Reported - Past Family History Mother Family Medical History: No Reported History General Exam Limitations: no limitations General appearance: alert, in no apparent distress Head exam: Present: atraumatic, normocephalic, normal inspection Respiratory exam: Present: normal lung sounds bilaterally. Absent: respiratory distress, wheezes, rales, rhonchi, stridor Cardiovascular Exam: Present: regular rate, normal rhythm, normal heart sounds. Absent: systolic murmur, diastolic murmur, rubs, gallop, clicks Back exam: Present: tenderness (Coccyx) Neurological exam: Present: alert, oriented X3, CN II-XII intact Psychiatric exam: Present: normal affect, normal mood Skin exam: Present: warm, dry, intact, normal color. Absent: rash Course Vital Signs 01/11/22 01/12/22 22:18 01:33 Temperature 98 F 97.8 F Pulse Rate 76 74 Respiratory 20 18 Rate Blood Pressure 111/75 113/72 O2 Sat by Pulse 100 100 Oximetry Medical Decision Making - Medical Decision Making This is a 22-year-old female who presents to the emergency department for coccygeal pain. Serum hCG was negative. X-ray of the sacrum and coccyx were negative. Advised she began sitting on a donut pillow to avoid putting excess pressure on the painful areas. She can take [id number] Tylenol and ibuprofen as needed for pain relief. If she does not get her period in the next couple weeks, advised she take an [id number] test. Return precautions reviewed in depth, the patient is instructed to return to the emergency department with any new, worsening, or concerning symptoms. Patient verbalized understanding. This case was discussed in detail with the attending ED physician. Presentation, findings, and treatment plan discussed in detail as well. - Lab Data Lab Results 01/11/22 Range/Units 22:52 HCG, Quant <2.4 mIU/mL - Radiology Data Radiology results: report reviewed, image reviewed Disposition Clinical Impression: Coccygeal pain Disposition: HOME SELF-CARE Instructions (If sedation given, give patient instructions): Back Pain (ED) Additional Instructions: Return to the emergency department with any new, worsening, or concerning symptoms. Take an yxul-pin-jbewqdx test if you do not have your period within a couple of weeks. Take ibuprofen and Tylenol for pain relief. Try getting a donut pillow to avoid putting excess pressure on your tailbone area. Is patient prescribed a controlled substance at d/c from ED?: No Referrals: Barry Cabral DO [Primary Care Provider] - 1-2 days
--- NOTE | 2022-01-12 01:06 | XR ---
EXAMINATION TYPE: XR sacrum coccyx DATE OF EXAM: 01/12/2022 COMPARISON: NONE HISTORY: Pain TECHNIQUE: 3 views FINDINGS: Sacral segments have normal alignment. Coccyx appears normal. Sacroiliac joints appear norm al. There is some clothing artifact over the sacrum on the frontal view. IMPRESSION: No evidence of fracture of the sacrum and coccyx.
[2022-01-12 01:35] VITALS: BP 113/72; PULSE 74; RESP 18; TEMP 97.8
== END 2022-01-12 01:39 | disposition home or self-care (01) ==
LOC: EC 22:13
DX: M53.3 Sacrococcygeal disorders, not elsewhere classified (principal); K21.9 Gastro-esophageal reflux disease without esophagitis; Z79.899 Other long term (current) drug therapy; Z72.89 Other problems related to lifestyle
CPT/HCPCS: 36415; 72220; 84702; 99283

== ENCOUNTER 2022-10-25 10:50 | Outpatient (CLI) | payer OTHER ==
[2022-10-25 12:58] VITALS: BP 111/65; PULSE 86; RESP 16; TEMP 98.1
--- NOTE | 2022-10-30 14:11 | P.MSEPDOC ---
Presenting Problems - Arrival Data Date of Arrival on Unit: 10/25/22 Time of Arrival on Unit: 10:50 Mode of Transport: Ambulatory - Complaint OB-Reason for Admission/Chief Complaint: Possible Onset of Labor Comment: pt arrived c/o contractions every 2 minutes apart and lasting 40 seconds that started 2 hrs ago. pt states she was dilated to 3cm last week pt 37 2/7 weeks gestation. and denies any leaking of fluid. pt observed with no contractions noted cervix 3 cm 70% effaced -2 station and pt rechecked after 1 hr with nochange noted incervix and still no contractions. abd remains soft and nontender v/s stable.orders received to discharge pt to home with instructions Medical History - Information : 1 Para: 0 Term: 0 : 0 Abortions: Spontaneous or Elective: 0 Number of Living Children: 0 - Gestational Age Gestational Age by MARRY (wks/days): 37 Weeks and 2 Days Review of Systems - Review of Systems Constitutional: No problems Breast: No problems ENT: No problems Cardiovascular: No problems Respiratory: No problems Gastrointestinal: No problems Genitourinary: No problems Musculoskeletal: No problems Neurological: No problems Skin: No problems Vital Signs - Temperature Temperature: 98.1 F Temperature Source: Oral - Pulse Right Brachial Pulse Rate: 86 Pulse Assessment Method: Automatic Cuff - Respirations Respiratory Rate: 16 Oxygen Delivery Method: Room Air O2 Sat by Pulse Oximetry: 98 - Blood Pressure Right Arm Blood Pressure: 111/65 Blood Pressure Mean: 80 Blood Pressure Source: Automatic Cuff Medical Screen Scoring - Cervical Exam Dilation (cm): 3 Effacement (%): 70 Station: -2 Membranes: Intact - Uterine Contractions Frequency From (mins): 0 Frequency To (mins): 0 Duration From (seconds): 0 Intensity: Mild Resting: Soft to palpation - Assessment - Baby A Baseline FHR: 140 Heart Rate - NICHD Category: Category I (Normal) NST: Reactive Physician Notification - Physician Notified Physician Notified Date: 10/25/22 Physician Notified Time: 11:24 Physician: Erika Matta Order Received: Yes - Notification Comment Comment: may discharge to home undelivered with instructions Maternal Triage Index - Non-Urgent/Priority 4 Non-Urgent Priority 4: Yes Criteria Met for Priority 4: pt arrived c/o contractions every 2 minutes apart for the last 2 hrs. pt edc 11/13/22 denies rom. pt had reactive NST cervix 3cm 70% -2 and rechecked after 1 hr with no change aand membranes intact. v/s stable orders receeived to discharge pt with instructions Disposition - Disposition OB Disposition: Discharge to home Discharge Date: 10/25/22 Discharge Time: 12:45 I agree with the RN Medical Screening Exam: Yes Physician's MSE Comment: I have neither seen nor examined the patient Case reviewed; plan agreed upon as documented in EMR&OBIX.: Yes Diagnosis: RELATED CONDITIONS, UNSPECIFIED, THIRD TRIMESTER
== END 2022-10-25 12:45 | disposition home or self-care (01) ==
LOC: FBPOP 10:50
PROVIDERS: ATTEND Obstetrics & Gynecology
DX: O47.1 False labor at or after 37 completed weeks of gestation (principal); Z3A.37 37 weeks gestation of pregnancy
CPT/HCPCS: 59025; 99213

== ENCOUNTER 2022-10-31 11:11 | Inpatient (IN) | payer OTHER ==
[2022-10-31] MEDS ORDERED: METHYLERGONOVINE 0.2 MG/ML 1 ML AMP IM PRN (12:04)
[2022-10-31] MEDS ORDERED: LIDOCAINE 0.5% (PF) 5 MG/ML (50 ML SDV) SQ PRN (12:04)
[2022-10-31] MEDS ORDERED: OXYTOCIN 10 UNIT/ML 1 ML VIAL IM PRN (12:04)
[2022-10-31] MEDS ORDERED: TERBUTALINE 1 MG/ML VIAL SQ PRN (12:04)
[2022-10-31] MEDS ORDERED: miSOPROStoL 200 MCG TAB PO PRN (12:04)
[2022-10-31] MEDS ORDERED: CARBOPROST TROMETHAMINE 250 MCG/ML 1 ML AMP IM PRN (12:04)
[2022-10-31] MEDS ORDERED: TRANEXAMIC ACID IN NACL,ISO-OS 1,000 MG in EMPTY BAG 1 BAG IV PRN (12:04)
[2022-10-31] MEDS: LACTATED RINGERS 1,000 ML IV SCH ×2 (12:15→14:00)
[2022-10-31 12:18] LABS: Basophils % (A) 0 %; Eosinophils # (A) 0.1 k/uL (0-0.7); Eosinophils % (A) 0 %; HCT 38.9 % (34.0-46.0); HGB 13.2 gm/dL (11.4-16.0); Lymphocytes # (A) 1.2 k/uL (1.0-4.8); Lymphocytes % (A) 9 %; MCH 29.3 pg (25.0-35.0); MCHC 33.9 g/dL (31.0-37.0); MCV 86.4 fL (80.0-100.0); Mean Platelet Volume 7.6; Monocytes # (A) 0.5 k/uL (0-1.0); Monocytes % (A) 4 %; Neutrophils # (A) 11.1 k/uL (1.3-7.7); Neutrophils % (A) 86 %; Platelet Count 318 k/uL (150-450); RDW 12.8 % (11.5-15.5); WBC 12.9 k/uL (3.8-10.6)
[2022-10-31] MEDS ORDERED: fentaNYL (PF) 50 MCG/ML 5 ML AMP ONE (12:25)
[2022-10-31] MEDS ORDERED: SODIUM CHLORIDE 0.9% 100 ML BAG ONE (12:25)
[2022-10-31] MEDS ORDERED: ROPIVACAINE 5 MG/ML 20 ML AMPULE ONE (12:25)
--- NOTE | 2022-10-31 13:37 | P.HPOB ---
History of Present Illness H&P Date: 10/31/22 Chief Complaint: regular uterine contractions Ms. Murillo is a 22 year old at 38 weeks and 1 day with EDC of 11/13/2022 by LMP c/w 14 wk US who presents to labor and delivery with regular, painful uterine contractions. 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 The patient has a past medical history significant for Crohn's disease (not on medications during ) and cleft lip/palate. Maternal serologies: A positive, antibody negative, rubella immune, VDRL non- reactive, HBsAg negative, HIV negative, 1 hour GTT 71, GBS negative. Past Medical History Past Medical History: Blood Disorder, GERD/Reflux Additional Past Medical History / Comment(s): Crohns dx. COLITIS AND POLYPS. IRON DEFICIENCY ANEMIA. History of Any Multi-Drug Resistant Organisms: None Reported Additional Past Surgical History / Comment(s): cleft pallet. colonoscopies WITH 3 POLYPS REMOVED. Past Anesthesia/Blood Transfusion Reactions: No Reported Reaction Smoking Status: Vaper - Past Family History Mother Family Medical History: No Reported History Medications and Allergies Home Medications Medication Instructions Recorded Confirmed Type Vit No.179/Iron/Folic 1 tab PO DAILY 10/25/22 10/31/22 History [ Tablet] RX: Aspirin [Adult Low Dose 1 tab PO DAILY 10/31/22 10/31/22 History Aspirin EC] Allergies Allergy/AdvReac Type Severity Reaction Status Date / Time No Known Allergies Allergy Verified 10/31/22 12:02 Exam Intake and Output 10/30/22 10/31/22 10/31/22 22:59 06:59 14:59 Other: Weight 90.718 kg Focused physical exam is performed. This is a healthy-appearing in no apparent distress. Cervical exam is 6cm/100% effaced/-2 station. AROM is undertaken with clear fluid noted. heart tones are Category I. Comfortable with epidural. Results Result Diagrams: 10/31/22 12:00 Abnormal Lab Results - Last 24 Hours (Table) 10/31/22 Range/Units 12:00 WBC 12.9 H (3.8-10.6) k/uL Neutrophils # 11.1 H (1.3-7.7) k/uL Assessment and Plan Assessment: 22 year old at 38 weeks and 2 days presenting in labor. Plan: Admit, NPO, mIVF, epidural prn, augmentation with oxytocin. Continuous EFM. Close monitoring of patient. Time with Patient: Less than 30 (10 minutes)
[2022-10-31] MEDS ORDERED: OXYTOCIN 30 UNITS/500 ML NS 30 UNIT in SALINE 1 500ML.BAG IV SCH ×2 (15:15→15:30)
[2022-10-31] MEDS ORDERED: SIMETHICONE 80 MG CHEWABLE PO PRN (15:21)
[2022-10-31] MEDS ORDERED: HYDROCORTISONE 2.5% RECTAL CREAM 30 GM TUBE RECTAL PRN (15:21)
[2022-10-31] MEDS ORDERED: diphenhydrAMINE 50 MG/ML 1 ML VIAL IVP PRN ×2 (15:21)
[2022-10-31] MEDS ORDERED: diphenhydrAMINE 50 MG CAP PO PRN (15:21)
[2022-10-31] MEDS ORDERED: ZOLPIDEM 5 MG TAB PO PRN (15:21)
[2022-10-31] MEDS ORDERED: BENZOCAINE/MENTHOL SPRAY 1 GM/SPRAY AEROSOL TOPICAL PRN (15:21)
[2022-10-31] MEDS ORDERED: LANOLIN CREAM 5 GM TUBE TOPICAL PRN (15:21)
[2022-10-31] MEDS ORDERED: diphenhydrAMINE 25 MG CAP PO PRN (15:21)
--- NOTE | 2022-10-31 15:26 | P.PROBDLV ---
Vaginal Delivery Note - . Vaginal Delivery Note: DATE OF SERVICE: 10/31/2022 PROCEDURE: Normal Vaginal Delivery ATTENDING: Dr. Erika Matta MD ESTIMATED BLOOD LOSS: 200 mL FINDINGS: VFI, Apgars 9/9, Weight 5#15oz PROCEDURE: Patient was a 22 y/o who presented to labor and delivery in labor at 38 weeks and 2 days. The patient was admitted, AROM was undertaken for clear fluid, and oxytocin augmentation was started. The patient received an epidural per her request. The patient reached complete dilation and pushed the head very effectively. Head delivered without difficulty followed by shoulders and body over intact perineum. Infant placed on maternal abdomen and bulb suctioned. Cord was clamped and cut after a 30 second delay. Placenta delivered whole with gentle cord traction. Oxytocin was started to facilitate uterine tone. Uterine fundus firm and bleeding minimal upon fundal massage. Perineal inspection revealed a left labia majora laceration and bilateral periurethral lacerations that were repaired with running 3-0 Polysorb in the usual fashion. Patient stable .
[2022-11-01] MEDS: SENNOSIDES-DOCUSATE SODIUM 1 EACH TAB PO SCH ×3 (00:22→20:32)
[2022-11-01] MEDS: IBUPROFEN 600 MG TAB PO PRN ×4 (00:50→22:13)
[2022-11-01 06:34] LABS: Basophils % (A) 0 %; Eosinophils # (A) 0.1 k/uL (0-0.7); Eosinophils % (A) 1 %; HCT 32.9 % (34.0-46.0); HGB 11.1 gm/dL (11.4-16.0); Lymphocytes # (A) 1.6 k/uL (1.0-4.8); Lymphocytes % (A) 14 %; MCH 30.1 pg (25.0-35.0); MCHC 33.6 g/dL (31.0-37.0); MCV 89.6 fL (80.0-100.0); Mean Platelet Volume 7.8; Monocytes # (A) 0.8 k/uL (0-1.0); Monocytes % (A) 7 %; Neutrophils # (A) 8.3 k/uL (1.3-7.7); Neutrophils % (A) 75 %; Platelet Count 258 k/uL (150-450); RBC 3.67 m/uL (3.80-5.40); RDW 12.9 % (11.5-15.5)
--- NOTE | 2022-11-01 10:56 | P.PNOBGVD ---
Subjective - Subjective Principal diagnosis: s/p normal vaginal delivery Interval history: The patient is doing well this morning and had no acute events overnight. She has no complaints this morning. She reports minimal lochia, passing flatus, voiding without difficulty, ambulating, and eating/drinking without nausea or vomiting. She is feeding her infant bottles of formula and expressed milk without difficulty. She denies chest pain, shortness of breathing, fevers, or chills overnight. She denies pain or swelling in the legs. Patient reports: Reports appetite normal, Reports voiding normally, Reports pain well controlled, Reports ambulating normally : doing well Objective - Latest Vital Signs Latest vital signs: Vital Signs Temp Pulse Resp BP Pulse Ox 11/01/22 08:00 97.6 F 62 17 124/77 100 11/01/22 00:00 97.7 F 63 16 111/77 10/31/22 21:40 98.5 F 61 16 117/74 10/31/22 17:15 96.8 F L 65 16 116/56 10/31/22 16:45 58 L 14 116/57 10/31/22 16:15 58 L 14 117/61 10/31/22 16:00 58 L 14 114/64 10/31/22 15:45 54 L 16 121/69 10/31/22 15:30 59 L 14 119/64 10/31/22 15:15 97.3 F L 70 14 118/64 10/31/22 12:01 96.7 F L 61 16 135/72 Intake and Output 10/31/22 11/01/22 11/01/22 22:59 06:59 14:59 Intake Total 170.1 Output Total 355 Balance -184.9 Intake: Intake, IV Titration 170.1 Amount Oxytocin 30 Units/500 ml 170.1 Ns 30 unit In Saline 1 500ml.bag @ Per Protocol IV .Q0M [facility] Rx#:[id number] Output: Output, Quantitative 355 Blood Loss Other: # Voids 1 2 1 - Exam Extremities: Present: normal Abdomen: Present: normal appearance, soft Uterus: Present: normal, firm - Labs Labs: Abnormal Lab Results - Last 24 Hours (Table) 10/31/22 11/01/22 Range/Units 12:00 05:44 WBC 12.9 H 11.0 H (3.8-10.6) k/uL RBC 3.67 L (3.80-5.40) m/uL Hgb 11.1 L (11.4-16.0) gm/dL Hct 32.9 L (34.0-46.0) % Neutrophils # 11.1 H 8.3 H (1.3-7.7) k/uL Assessment and Plan Assessment: 22 year old now PPD#1 s/p normal vaginal delivery at 38 weeks and 1 day Plan: Patient requests another night stay. Will discharge home tomorrow.
[2022-11-01 23:57] VITALS: PULSE 73; TEMP 97.7
[2022-11-02] MEDS: ACETAMINOPHEN TAB 325 MG TAB PO PRN ×2 (01:23→07:25)
[2022-11-02] MEDS: IBUPROFEN 600 MG TAB PO PRN (05:11)
[2022-11-02 07:28] VITALS: BP 107/74; RESP 18
[2022-11-02] MEDS: SENNOSIDES-DOCUSATE SODIUM 1 EACH TAB PO SCH (07:52)
--- NOTE | 2022-11-02 08:57 | P.DS ---
Providers Date of admission: 10/31/22 11:39 Expected date of discharge: 11/02/22 Attending physician: Erika Matta MD Primary care physician: Stated None Hospital Course: This is a 22-year-old now 1 para 1001 day #2 status post uncomplicated vaginal delivery who is doing well and desires discharge home today. The patient is doing well this morning and had no acute events overnight. She has no complaints this morning. She reports minimal lochia, passing flatus, voiding without difficulty, ambulating, and eating/drinking without nausea or vomiting. Infant doing well at bedside, feeding well with formula and expressed milk. She denies chest pain, shortness of breathing, fevers, or chills overnight. She denies pain or swelling in the legs. restrictions are reviewed with the patient including pelvic rest for 6 weeks. The patient is encouraged to call the office if she experiences any heavy bleeding, foul-smelling discharge, breast complaints, or any if she has any other concerns. She will follow up in the office in 6 weeks for visit. All questions are answered. Assessment: 22 year old now s/p NVD Patient Condition at Discharge: Good Plan - Discharge Summary Discharge Rx Participant: No New Discharge Prescriptions: New Ibuprofen [Motrin] 600 mg PO Q6HR PRN #30 tab PRN Reason: Mild Pain (Scale 1 To 3) Acetaminophen Tab [Tylenol] 650 mg PO Q6H PRN #30 tab PRN Reason: Mild Pain (Scale 1 To 3) No Action Vit No.179/Iron/Folic [ Tablet] 1 tab PO DAILY Aspirin [Adult Low Dose Aspirin EC] 1 tab PO DAILY Discharge Medication List Vit No.179/Iron/Folic [ Tablet] 1 tab PO DAILY 10/25/22 [History] Aspirin [Adult Low Dose Aspirin EC] 1 tab PO DAILY 10/31/22 [History] Acetaminophen Tab [Tylenol] 650 mg PO Q6H PRN #30 tab 11/02/22 [Rx] Ibuprofen [Motrin] 600 mg PO Q6HR PRN #30 tab 11/02/22 [Rx] Follow up Appointment(s)/Referral(s): Erika Matta MD [STAFF PHYSICIAN] - 6 Weeks Patient Instructions/Handouts: How to Increase Your Milk Supply (DC), How to Tell if Your Baby is Getting Enough Breast Milk (DC), Depression (DC), Perineal Care (DC), Bleeding (DC) Activity/Diet/Wound Care/Special Instructions: Pelvic rest for 6 weeks Discharge Disposition: HOME SELF-CARE
== END 2022-11-02 13:00 | disposition home or self-care (01) | DRG 806 ==
LOC: FBPOP 11:11 → 4FBP 11:39
PROVIDERS: ADMIT Obstetrics & Gynecology; ATTEND Obstetrics & Gynecology
PROC: 10E0XZZ Delivery of Products of Conception, External Approach (ICD-10-PCS; principal; 2022-10-31)
PROC: 0UQMXZZ Repair Vulva, External Approach (ICD-10-PCS; 2022-10-31)
PROC: 10907ZC Drainage of Amniotic Fluid, Therapeutic from Products of Conception, Via Natural or Artificial Opening (ICD-10-PCS; 2022-10-31)
PROC: 3E033VJ Introduction of Other Hormone into Peripheral Vein, Percutaneous Approach (ICD-10-PCS; 2022-10-31)
DX: O99.62 Diseases of the digestive system complicating childbirth (principal); K50.90 Crohn's disease, unspecified, without complications; Z37.0 Single live birth; O71.82 Other specified trauma to perineum and vulva; Z3A.38 38 weeks gestation of pregnancy; Z79.82 Long term (current) use of aspirin
CPT/HCPCS: 85025; 86850; 86900; 86901

== ENCOUNTER 2023-01-17 22:21 | Emergency (ER) | payer OTHER ==
[2023-01-17 22:29] VITALS: TEMP 98.1
[2023-01-17] MEDS ORDERED: SODIUM CHLORIDE 0.9% 1,000 ML IV ONE (22:50)
--- NOTE | 2023-01-17 22:55 | ED ---
General Adult HPI - General Chief complaint: Syncope Stated complaint: ABD Pain,Dizzy, Fall Time Seen by Provider: 01/17/23 22:32 Source: patient, RN notes reviewed Mode of arrival: ambulatory Limitations: no limitations - History of Present Illness Initial comments: 27-year-old female with no significant past medical history presents to the emergency department the chief complaint of generalized weakness times one day. She reports having 2 episodes today where she felt too weak from standing to sitting. She denies any consciousness or head. She denies any recent sick contacts. Denies known fever, chills, cough,, shortness of breath, dyspnea, melena, hematochezia, dysuria. She is unsure of when her last menstrual period was however approximately one month ago she had a bowel movement 3 days of vaginal bleeding. She is unsure if she is . - Related Data Home Medications Medication Instructions Recorded Confirmed Vit No.179/Iron/Folic 1 tab PO DAILY 10/25/22 10/31/22 [ Tablet] Aspirin [Adult Low Dose Aspirin EC] 1 tab PO DAILY 10/31/22 10/31/22 Previous Rx's Medication Instructions Recorded Acetaminophen Tab [Tylenol] 650 mg PO Q6H PRN #30 tab 11/02/22 Ibuprofen [Motrin] 600 mg PO Q6HR PRN #30 tab 11/02/22 Allergies Allergy/AdvReac Type Severity Reaction Status Date / Time No Known Allergies Allergy Verified 01/17/23 22:29 Review of Systems ROS Statement: Those systems with pertinent positive or pertinent negative responses have been documented in the HPI. ROS Other: All systems not noted in ROS Statement are negative. Past Medical History Past Medical History: Blood Disorder, GERD/Reflux Additional Past Medical History / Comment(s): Crohns dx. COLITIS AND POLYPS. IRON DEFICIENCY ANEMIA. History of Any Multi-Drug Resistant Organisms: None Reported Additional Past Surgical History / Comment(s): cleft pallet. colonoscopies WITH 3 POLYPS REMOVED. Past Anesthesia/Blood Transfusion Reactions: No Reported Reaction Past Psychological History: No Psychological Hx Reported Smoking Status: Vaper - Past Family History Mother Family Medical History: No Reported History General Exam - General Exam Comments Initial Comments: General: Alert, in no acute distress Head: atraumatic normocephalic. Eyes PERRL, EOMI intact, mucous membranes moist Respiratory: Lungs clear to auscultation bilaterally Cardiovascular: Regular rate and rhythm Abdominal: Soft without guarding or rebound Extremities: Normal inspection with full range of motion and normal capillary refill Neuroogic: alert and oriented 3, CN II-XII intact, able to ambulate with steady gait Skin: warm dry and intact with normal color Limitations: no limitations Course Vital Signs 01/17/23 01/18/23 22:24 00:20 Temperature 98.1 F Pulse Rate 80 87 Respiratory 20 18 Rate Blood Pressure 107/73 115/79 O2 Sat by Pulse 97 98 Oximetry Medical Decision Making - Medical Decision Making Was pt. sent in by a medical professional or institution (, YUE, FOREIGN COLLECTION CLERK, urgent care, hospital, or [place] [facility] facility...) When possible be specific @ -[No] Did you speak to anyone other than the patient for history (EMS, parent, family, police, friend...)? What history was obtained from this source @ -[No] Did you review nursing and triage notes (agree or disagree)? Why? @ -[I reviewed and agree with nursing and triage notes] Were old charts reviewed (outside hosp., previous admission, EMS record, old EKG, old radiological studies, urgent care reports/EKG's, [place] [facility] facility records)? Report findings @ -[No old charts were reviewed] Differential Diagnosis (chest pain, altered mental status, abdominal pain women, abdominal pain men, vaginal bleeding, weakness, fever, dyspnea, syncope, headache, dizziness, GI bleed, back pain, seizure, CVA, palpatations, mental health, musculoskeletal)? @ -[not applicable] EKG interpreted by me (3pts min.). @ -[As above] X-rays interpreted by me (1pt min.). @ -[None done] CT interpreted by me (1pt min.). @ -[None done] U/S interpreted by me (1pt. min.). @ -[None done] What testing was considered but not performed or refused? (CT, X-rays, U/S, labs)? Why? @ -[None] What meds were considered but not given or refused? Why? @ -[None] Did you discuss the management of the patient with other professionals (professionals i.e. , YUE, FOREIGN COLLECTION CLERK, lab, RT, psych nurse, home health care social worker, agency operator, teacher, public service officer, correctional casework specialist)? Give summary @ -[No] Was smoking cessation discussed for >3mins.? @ -[No] Was critical care preformed (if so, how long)? @ -[No] Were there social determinants of health that impacted care today? How? (Homelessness, low income, unemployed, alcoholism, drug addiction, transportation, low edu. Level, literacy, decrease access to med. care, half-way, rehab)? @ -[No] Was there de-escalation of care discussed even if they declined (Discuss DNR or withdrawal of care, Hospice)? DNR status @ -[No] What co-morbidities impacted this encounter? (DM, HTN, Smoking, COPD, CAD, Cancer, CVA, ARF, Chemo, Hep., AIDS, mental health diagnosis, sleep apnea, morbid obesity)? @ -[None] Was patient admitted / discharged? Hospital course, mention meds given and route, prescriptions, significant lab abnormalities, going to OR and other pertinent info. @ -Discharged. This is a pleasant 23-year-old female who presents to the emergency department with a chief complaint of fatigue. Patient had a thorough history and physical exam performed on the ED. Physical exam essentially unremarkable. Heart rate regular rate and rhythm, lungs clear to auscultation bilaterally. Patient had imaging which was essentially unremarkable. I discussed results in detail the patient verbalized understanding and all questions were addressed. She'll be discharged home in stable condition. Case discussed with ECP, Dr. Davis who agrees with plan of c are Undiagnosed new problem with uncertain prognosis? @ -[No] Drug Therapy requiring intensive monitoring for toxicity (Heparin, Nitro, Insulin, Cardizem)? @ -[No] Were any procedures done? @ -[No] Diagnosis/symptom? @ -fatigue Acute, or Chronic, or Acute on Chronic? @ -Acute Uncomplicated (without systemic symptoms) or Complicated (systemic symptoms)? @ -Uncomplicated Side effects of treatment? @ -[No] Exacerbation, Progression, or Severe Exacerbation? @ -[No] Poses a threat to life or bodily function? How? (Chest pain, USA, [place], pneumonia, PE, COPD, DKA, ARF, appy, cholecystitis, CVA, Diverticulitis, Homicidal, Suicidal, threat to staff... and all critical care pts) @ -Low likelihood - Lab Data Result diagrams: 01/17/23 22:59 01/17/23 22:59 Lab Results 01/17/23 01/17/23 01/17/23 Range/Units 22:59 22:59 23:51 WBC 9.0 (3.8-10.6) k/uL RBC 4.42 (3.80-5.40) m/uL Hgb 13.0 (11.4-16.0) gm/dL Hct 37.2 (34.0-46.0) % MCV 84.1 (80.0-100.0) fL MCH 29.3 (25.0-35.0) pg MCHC 34.9 (31.0-37.0) g/dL RDW 13.0 (11.5-15.5) % Plt Count 308 (150-450) k/uL MPV 7.2 Neutrophils % 70 % Lymphocytes % 20 % Monocytes % 5 % Eosinophils % 3 % Basophils % 1 % Neutrophils # 6.3 (1.3-7.7) k/uL Lymphocytes # 1.8 (1.0-4.8) k/uL Monocytes # 0.5 (0-1.0) k/uL Eosinophils # 0.3 (0-0.7) k/uL Basophils # 0.1 (0-0.2) k/uL Sodium 137 (137-145) mmol/L Potassium 4.6 (3.5-5.1) mmol/L Chloride 105 (98-107) mmol/L Carbon Dioxide 25 (22-30) mmol/L Anion Gap 7 mmol/L BUN 14 (7-17) mg/dL Creatinine 0.83 (0.52-1.04) mg/dL Est GFR (CKD-EPI)AfAm >90 (>60 ml/min/1.73 sqM) Est GFR (CKD-EPI)NonAf >90 (>60 ml/min/1.73 sqM) Glucose 90 (74-99) mg/dL Calcium 9.3 (8.4-10.2) mg/dL Total Bilirubin 0.4 (0.2-1.3) mg/dL AST 22 (14-36) U/L ALT 13 (4-34) U/L Alkaline Phosphatase 65 (38-126) U/L Total Protein 8.4 H (6.3-8.2) g/dL Albumin 4.3 (3.5-5.0) g/dL HCG, Quant <2.4 mIU/mL Urine Color Light Yellow Urine Appearance Cloudy H (Clear) Urine pH 5.5 (5.0-8.0) Ur Specific [place] 1.016 (1.001-1.035) Urine Protein Negative (Negative) Urine Glucose (UA) Negative (Negative) Urine Ketones Negative (Negative) Urine Blood Negative (Negative) Urine Nitrite Negative (Negative) Urine Bilirubin Negative (Negative) Urine Urobilinogen <2.0 (<2.0) mg/dL Ur Leukocyte Esterase Small H (Negative) Urine RBC 1 (0-5) /hpf Urine WBC 2 (0-5) /hpf Ur Squamous Epith Cells 14 H (0-4) /hpf Urine Bacteria Rare H (None) /hpf Urine Mucus Rare H (None) /hpf Disposition Clinical Impression: Fatigue Disposition: HOME SELF-CARE Condition: Stable Instructions (If sedation given, give patient instructions): Fatigue (ED) Additional Instructions: Please return to the nearest emergency department if symptoms worsen or persist Is patient prescribed a controlled substance at d/c from ED?: No Referrals: Barry Cabral DO [Primary Care Provider] - 1-2 days Time of Disposition: 00:17
[2023-01-17 23:10] LABS: Basophils # (A) 0.1 k/uL (0-0.2); Basophils % (A) 1 %; Eosinophils # (A) 0.3 k/uL (0-0.7); Eosinophils % (A) 3 %; HCT 37.2 % (34.0-46.0); Lymphocytes # (A) 1.8 k/uL (1.0-4.8); Lymphocytes % (A) 20 %; MCH 29.3 pg (25.0-35.0); MCHC 34.9 g/dL (31.0-37.0); MCV 84.1 fL (80.0-100.0); Mean Platelet Volume 7.2; Monocytes # (A) 0.5 k/uL (0-1.0); Monocytes % (A) 5 %; Neutrophils # (A) 6.3 k/uL (1.3-7.7); Neutrophils % (A) 70 %; Platelet Count 308 k/uL (150-450); RBC 4.42 m/uL (3.80-5.40)
[2023-01-17 23:26] LABS: ALT 13 U/L (4-34); AST 22 U/L (14-36); African American GFR (CKD) >90 (>60 ml/min/1.73 sqM); Albumin 4.3 g/dL (3.5-5.0); Alkaline Phosphatase 65 U/L (38-126); Anion Gap 7 mmol/L; Blood Urea Nitrogen 14 mg/dL (7-17); Calcium 9.3 mg/dL (8.4-10.2); Carbon Dioxide 25 mmol/L (22-30); Chloride 105 mmol/L (98-107); Glucose 90 mg/dL (74-99); Non-African American GFR(CKD) >90 (>60 ml/min/1.73 sqM); Potassium 4.6 mmol/L (3.5-5.1); Sodium 137 mmol/L (137-145); Total Bilirubin 0.4 mg/dL (0.2-1.3); Total Protein 8.4 g/dL (6.3-8.2)
[2023-01-17 23:41] LABS: HCG,Quantitative Serum <2.4 mIU/mL
[2023-01-18 00:04] LABS: Appearance,Urine Cloudy (Clear); Bacteria,Urine Rare /hpf; Bilirubin,Urine Negative (Negative); Blood,Urine Negative (Negative); Color,Urine Light Yellow; Glucose,Urine (UA) Negative (Negative); Ketones,Urine Negative (Negative); Leukocyte Esterase,Urine Small (Negative); Mucus,Urine Rare /hpf; Nitrite,Urine Negative (Negative); PH, Urine 5.5 (5.0-8.0); Protein,Urine Negative (Negative); RBC,Urine 1 /hpf (0-5); Specific Gravity,Urine 1.016 (1.001-1.035); Squamous Epithelial Cell,Urine 14 /hpf (0-4); Urobilinogen,Urine <2.0 mg/dL (<2.0); WBC,Urine 2 /hpf (0-5)
[2023-01-18 00:21] VITALS: BP 115/79; PULSE 87; RESP 18
== END 2023-01-18 00:33 | disposition home or self-care (01) ==
LOC: EC 22:21
DX: R53.83 Other fatigue (principal); F17.290 Nicotine dependence, other tobacco product, uncomplicated; Z79.82 Long term (current) use of aspirin
CPT/HCPCS: 36415; 80053; 81001; 84702; 85025; 96360; 99284

== ENCOUNTER 2023-02-28 12:03 | Emergency (ER) | payer OTHER ==
--- NOTE | 2023-02-28 12:13 | ED ---
General Adult HPI - General Stated complaint: Covid Symptoms, 8wks Time Seen by Provider: 02/28/23 12:12 Source: patient, RN notes reviewed Mode of arrival: ambulatory Limitations: no limitations - History of Present Illness Initial comments: 23-year-old female presents emergency Department with chief complaint cough and cold-like symptoms. Patient states she's been sick last few days. She states her son is some her symptoms. She is concerned about possible coronavirus - Related Data Home Medications Medication Instructions Recorded Confirmed Vit No.179/Iron/Folic 1 tab PO DAILY 10/25/22 10/31/22 [ Tablet] Aspirin [Adult Low Dose Aspirin EC] 1 tab PO DAILY 10/31/22 10/31/22 Previous Rx's Medication Instructions Recorded Acetaminophen Tab [Tylenol] 650 mg PO Q6H PRN #30 tab 11/02/22 Ibuprofen [Motrin] 600 mg PO Q6HR PRN #30 tab 11/02/22 Allergies Allergy/AdvReac Type Severity Reaction Status Date / Time No Known Allergies Allergy Verified 02/28/23 13:11 Review of Systems ROS Statement: Those systems with pertinent positive or pertinent negative responses have been documented in the HPI. ROS Other: All systems not noted in ROS Statement are negative. Past Medical History Past Medical History: Blood Disorder, GERD/Reflux Additional Past Medical History / Comment(s): Crohns dx. COLITIS AND POLYPS. IRON DEFICIENCY ANEMIA. History of Any Multi-Drug Resistant Organisms: None Reported Additional Past Surgical History / Comment(s): cleft pallet. colonoscopies WITH 3 POLYPS REMOVED. Past Anesthesia/Blood Transfusion Reactions: No Reported Reaction Past Psychological History: No Psychological Hx Reported Smoking Status: Vaper - Past Family History Mother Family Medical History: No Reported History General Exam - General Exam Comments Initial Comments: Visual Physical Exam Vital signs reviewed General: Well-appearing, nontoxic, no acute distress. Head: Normocephalic, atraumatic Eyes: PERRLA, EOMI ENT: Airway patent Chest: Nonlabored breathing Skin: No visual rash, normal skin tone Neuro: Alert and oriented 3 Musculoskeletal: No gross abnormalities Limitations: no limitations General appearance: alert, in no apparent distress Head exam: Present: atraumatic, normocephalic, normal inspection Eye exam: Present: normal appearance, PERRL, EOMI. Absent: scleral icterus, conjunctival injection, periorbital swelling ENT exam: Present: normal exam, normal oropharynx, mucous membranes moist Neck exam: Present: normal inspection, full ROM. Absent: tenderness, meningismus, lymphadenopathy Respiratory exam: Present: normal lung sounds bilaterally. Absent: respiratory distress, wheezes, rales, rhonchi, stridor Cardiovascular Exam: Present: regular rate, normal rhythm, normal heart sounds. Absent: systolic murmur, diastolic murmur, rubs, gallop, clicks Course Vital Signs 02/28/23 13:08 Temperature 98.5 F Pulse Rate 78 Respiratory 18 Rate Blood Pressure 113/69 O2 Sat by Pulse 97 Oximetry Medical Decision Making - Medical Decision Making I performed a quick note portion of this chart signed Ata Barnard PA-C Was pt. sent in by a medical professional or institution ([facility] Sheehan, PT ESCORT, urgent care, hospital, or jail...) When possible be specific @ -No Did you speak to anyone other than the patient for history (EMS, parent, family, police, friend...)? What history was obtained from this source @ -No Did you review nursing and triage notes (agree or disagree)? Why? @ -I reviewed and agree with nursing and triage notes Were old charts reviewed (outside hosp., previous admission, EMS record, old EKG, old radiological studies, urgent care reports/EKG's, jail records)? Report findings @ -No old charts were reviewed Differential Diagnosis (chest pain, altered mental status, abdominal pain women, abdominal pain men, vaginal bleeding, weakness, fever, dyspnea, syncope, headache, dizziness, GI bleed, back pain, seizure, CVA, palpatations, mental health, musculoskeletal)? @ -URI, influenza, RSV, Covid19 EKG interpreted by me (3pts min.). @ -None X-rays interpreted by me (1pt min.). @ -None done CT interpreted by me (1pt min.). @ -None done U/S interpreted by me (1pt. min.). @ -None done What testing was considered but not performed or refused? (CT, X-rays, U/S, labs)? Why? @ -None What meds were considered but not given or refused? Why? @ -None Did you discuss the management of the patient with other professionals (professionals i.e. Dr., PA, PT ESCORT, lab, RT, psych nurse, geriatric social work professor, gaming floor supervisor, teacher, fisheries officer, embedded case manager)? Give summary @ -No Was smoking cessation discussed for >3mins.? @ -No Was critical care preformed (if so, how long)? @ -No Were there social determinants of health that impacted care today? How? (Homelessness, low income, unemployed, alcoholism, drug addiction, trans portation, low edu. Level, literacy, decrease access to med. care, long term, rehab)? @ -No Was there de-escalation of care discussed even if they declined (Discuss DNR or withdrawal of care, Hospice)? DNR status @ -No What co-morbidities impacted this encounter? (DM, HTN, Smoking, COPD, CAD, Cancer, CVA, ARF, Chemo, Hep., AIDS, mental health diagnosis, sleep apnea, morbid obesity)? @ -None Was patient admitted / discharged? Hospital course, mention meds given and route, prescriptions, significant lab abnormalities, going to OR and other pertinent info. @ -Discharge patient has a viral URI Undiagnosed new problem with uncertain prognosis? @ -No Drug Therapy requiring intensive monitoring for toxicity (Heparin, Nitro, Insulin, Cardizem)? @ -No Were any procedures done? @ -No Diagnosis/symptom? @ -URI Acute, or Chronic, or Acute on Chronic? @ -Acute Uncomplicated (without systemic symptoms) or Complicated (systemic symptoms)? @ -Uncomplicated Side effects of treatment? @ -No Exacerbation, Progression, or Severe Exacerbation? @ -No Poses a threat to life or bodily function? How? (Chest pain, [place], [place], pneumonia, PE, COPD, DKA, ARF, appy, cholecystitis, CVA, Diverticulitis, Homicidal, Suicidal, threat to staff... and all critical care pts) @ -No - Lab Data Lab Results 02/28/23 Range/Units 13:11 Influenza Type A (PCR) Not Detected (Not Detectd) Influenza Type B (PCR) Not Detected (Not Detectd) RSV (PCR) Not Detected (Not Detectd) SARS-CoV-2 (PCR) Not Detected (Not Detectd) Disposition Clinical Impression: Acute upper respiratory infection Disposition: HOME SELF-CARE Condition: Stable Instructions (If sedation given, give patient instructions): Upper Respiratory Infection (ED) Additional Instructions: Please return to the Emergency Department if symptoms worsen or any other concerns. Is patient prescribed a controlled substance at d/c from ED?: No Referrals: Barry Cabral DO [Primary Care Provider] - 1-2 days Time of Disposition: 15:18
[2023-02-28 16:07] VITALS: BP 113/69; PULSE 78; RESP 18; TEMP 98.5
== END 2023-02-28 15:37 | disposition home or self-care (01) ==
LOC: EC 12:03
DX: O99.511 Diseases of the respiratory system complicating pregnancy, first trimester (principal); J06.9 Acute upper respiratory infection, unspecified; O99.331 Smoking (tobacco) complicating pregnancy, first trimester; F17.290 Nicotine dependence, other tobacco product, uncomplicated; Z20.822 Contact with and (suspected) exposure to COVID-19; Z3A.08 8 weeks gestation of pregnancy; Z79.82 Long term (current) use of aspirin
CPT/HCPCS: 87636; 99283

== ENCOUNTER 2023-06-19 17:45 | Emergency (ER) | payer OTHER ==
--- NOTE | 2023-06-19 18:06 | ED ---
Fall HPI - General Stated Complaint: Fall-hit head, 23wks preg Time Seen by Provider: 06/19/23 18:05 Source: patient, RN notes reviewed - History of Present Illness Initial Comments: Patient is a 23-year-old male presented ER with chief complaint of a fall. Patient states that she fell and hit her head after tripping on a toy. Patient denies loss of consciousness or blood thinner use. Denies nausea vomiting or double blurry vision. Patient states her OB would like her to be examined. Patient is 23 weeks . Patient denies any other injuries or complaints at this time. - Related Data Home Medications Medication Instructions Recorded Confirmed Vit No.179/Iron/Folic 1 tab PO DAILY 10/25/22 10/31/22 [ Tablet] Aspirin [Adult Low Dose Aspirin EC] 1 tab PO DAILY 10/31/22 10/31/22 Previous Rx's Medication Instructions Recorded Acetaminophen Tab [Tylenol] 650 mg PO Q6H PRN #30 tab 11/02/22 Ibuprofen [Motrin] 600 mg PO Q6HR PRN #30 tab 11/02/22 Allergies Allergy/AdvReac Type Severity Reaction Status Date / Time No Known Allergies Allergy Verified 06/19/23 18:11 Review of Systems ROS Statement: Those systems with pertinent positive or pertinent negative responses have been documented in the HPI. ROS Other: All systems not noted in ROS Statement are negative. Past Medical History Past Medical History: Blood Disorder, GERD/Reflux Additional Past Medical History / Comment(s): Crohns dx. COLITIS AND POLYPS. IRON DEFICIENCY ANEMIA. History of Any Multi-Drug Resistant Organisms: None Reported Additional Past Surgical History / Comment(s): cleft pallet. colonoscopies WITH 3 POLYPS REMOVED. Past Anesthesia/Blood Transfusion Reactions: No Reported Reaction Past Psychological History: No Psychological Hx Reported Smoking Status: Vaper - Past Family History Mother Family Medical History: No Reported History General Exam - General Exam Comments Initial Comments: Visual Physical Exam Vital signs reviewed General: Well-appearing, nontoxic, no acute distress. Head: Normocephalic, atraumatic Eyes: PERRLA, EOMI ENT: Airway patent Chest: Nonlabored breathing Skin: No visual rash, normal skin tone Neuro: Alert and oriented 3 Musculoskeletal: No gross abnormalities General appearance: alert, in no apparent distress Head exam: Present: atraumatic, normocephalic, normal inspection Eye exam: Present: normal appearance, PERRL, EOMI. Absent: scleral icterus, conjunctival injection, periorbital swelling Pupils: Present: normal accommodation ENT exam: Present: normal exam, mucous membranes moist Neck exam: Present: normal inspection. Absent: tenderness, meningismus, lymphadenopathy Respiratory exam: Present: normal lung sounds bilaterally. Absent: respiratory distress, wheezes, rales, rhonchi, stridor Cardiovascular Exam: Present: regular rate, normal rhythm, normal heart sounds. Absent: systolic murmur, diastolic murmur, rubs, gallop, clicks Neurological exam: Present: alert, oriented X3, CN II-XII intact Psychiatric exam: Present: normal affect, normal mood Skin exam: Present: warm, dry, intact, normal color. Absent: rash Course Vital Signs 06/19/23 18:05 Temperature 98.1 F Pulse Rate 86 Respiratory 18 Rate Blood Pressure 104/69 O2 Sat by Pulse 97 Oximetry - Reevaluation(s) Reevaluation #1: 06/19/23 18:06 I discussed risk to benefit ratio of CT scan/exposure of radiation with patient due to her being . Patient reports she was sent here by her INVENTORY CONTROL ANALYST for further evaluation. Patient decided she would like to proceed with computed tomography scan. 06/19/23 18:08 Medical Decision Making - Medical Decision Making I performed the quick note portion of the exam. Electronically signed by Serena Timmons PA-C Was pt. sent in by a medical professional or institution ([facility], [facility] CONSULT[facility], urgent care, hospital, or penitentiary...) When possible be specific @ -INVENTORY CONTROL ANALYST referred patient here for evaluation of minor head trauma. Did you speak to anyone other than the patient for history (EMS, parent, family, police, friend...)? What history was obtained from this source @ -No Did you review nursing and triage notes (agree or disagree)? Why? @ -I reviewed and agree with nursing and triage notes Were old charts reviewed (outside hosp., previous admission, EMS record, old EKG, old radiological studies, urgent care reports/EKG's, penitentiary records)? Report findings @ -No old charts were reviewed Differential Diagnosis (chest pain, altered mental status, abdominal pain women, abdominal pain men, vaginal bleeding, weakness, fever, dyspnea, syncope, headache, dizziness, GI bleed, back pain, seizure, CVA, palpatations, mental health, musculoskeletal)? @ -Differential Headache: Migraine, tension, cluster, carbon monoxide, central venous thrombosis, pension karma temporal arteritis, acute closure glaucoma, intercranial hemorrhage, mastoiditis, sinusitis, head injury, this is not meant to be an all-inclusive list. EKG interpreted by me (3pts min.). @ -None X-rays interpreted by me (1pt min.). @ -None done CT interpreted by me (1pt min.). @ -CT brain C-spine interpreted by me negative for acute intracranial process or mass effect. U/S interpreted by me (1pt. min.). @ -None done What testing was considered but not performed or refused? (CT, X-rays, U/S, labs)? Why? @ -None What meds were considered but not given or refused? Why? @ -None Did you discuss the management of the patient with other professionals (professionals i.e. , PA, REWARDS CONSULTANT, lab, RT, psych nurse, social science teacher, furnace tender, teacher, major gifts officer, case investigator)? Give summary @ -No Was smoking cessation discussed for >3mins.? @ -No Was critical care preformed (if so, how long)? @ -No Were there social determinants of health that impacted care today? How? (Homelessness, low income, unemployed, alcoholism, drug addiction, transportation, low edu. Level, literacy, decrease access to med. care, assisted, rehab)? @ -No Was there de-escalation of care discussed even if they declined (Discuss DNR or withdrawal of care, Hospice)? DNR status @ -No What co-morbidities impacted this encounter? (DM, HTN, Smoking, COPD, CAD, Cancer, CVA, ARF, Chemo, Hep., AIDS, mental health diagnosis, sleep apnea, morbid obesity)? @ - Was patient admitted / discharged? Hospital course, mention meds given and route, prescriptions, significant lab abnormalities, going to OR and other pertinent info. @ -Discharge. Patient is a 23-year-old female presenting to the ER with chief complaint of a fall. Patient is 23 weeks . Physical exam was negative for acute neurological findings. I discussed risks to benefit ratio of CT scan and pregancy with patient. She decided to proceed with CT scan because her "INVENTORY CONTROL ANALYST wanted her to get further evaluated". CT was negative for acute findings. I discussed imaging results with the patient. I advised her to follow up with her INVENTORY CONTROL ANALYST as scheduled. Return parameters were discussed. Patient will be discharged in stable condition with follow-up to PCP and INVENTORY CONTROL ANALYST. Patient expressed understanding and agreement with care plan. Undiagnosed new problem with uncertain prognosis? @ -No Drug Therapy requiring intensive monitoring for toxicity (Heparin, Nitro, Insulin, Cardizem)? @ -No Were any procedures done? @ -No Diagnosis/symptom? @ -Minor head trauma Acute, or Chronic, or Acute on Chronic? @ -Acute Uncomplicated (without systemic symptoms) or Complicated (systemic symptoms)? @ -Uncomplicated Side effects of treatment? @ -No Exacerbation, Progression, or Severe Exacerbation? @ -No Poses a threat to life or bodily function? How? (Chest pain, USA, [place], pneumonia, PE, COPD, DKA, ARF, appy, cholecystitis, CVA, Diverticulitis, Homicidal, S uicidal, threat to staff... and all critical care pts) @ -No - Radiology Data Radiology results: report reviewed, image reviewed Disposition Clinical Impression: Fall Disposition: HOME SELF-CARE Instructions (If sedation given, give patient instructions): Fall Prevention (ED) Additional Instructions: Please return to the Emergency Department if symptoms worsen or any other concerns. Please follow-up with INVENTORY CONTROL ANALYST as scheduled. Is patient prescribed a controlled substance at d/c from ED?: No Referrals: Barry Cabral DO [Primary Care Provider] - 1-2 days Time of Disposition: 18:52
[2023-06-19 18:17] VITALS: BP 104/69; PULSE 86; RESP 18; TEMP 98.1
--- NOTE | 2023-06-19 18:37 | CT ---
EXAMINATION TYPE: CT brain wo con CT DLP: 1062.4 mGycm, Automated exposure control for dose reduction was used. DATE OF EXAM: 06/19/2023 6:30 PM COMPARISON: None. CLINICAL INDICATION:Female, 23 years old with history of head injury, Hit back of head yesterday. No LOC - headaches and dizziness since. TECHNIQUE: Brain: Axial CT images of the brain were obtained with coronal and sagittal reformats created and rev iewed. Contrast used: None. Oral contrast used: None. FINDINGS: Brain: Extra-axial spaces: No abnormal extra-axial fluid collections. Ventricular system: Within normal limits Cerebral parenchyma: No acute intraparenchymal hemorrhage or mass effect. The hidalgo-white junction is well differentiated. Cerebellum: Unremarkable. Mass effect: No evidence of midline shift. Intracranial vasculature: unremarkable Soft tissues: Normal. Calvarium/osseous structures: No depressed skull fracture. Paranasal sinuses and mastoid air cells: Mild scattered paranasal sinus disease. Visualized orbits: Orbital contents are intact. IMPRESSION: No acute intracranial process.
== END 2023-06-19 19:15 | disposition home or self-care (01) ==
LOC: EC 17:45
DX: O26.892 Other specified pregnancy related conditions, second trimester (principal); S09.90XA Unspecified injury of head, initial encounter; O99.332 Smoking (tobacco) complicating pregnancy, second trimester; F17.290 Nicotine dependence, other tobacco product, uncomplicated; Z79.82 Long term (current) use of aspirin; Z3A.23 23 weeks gestation of pregnancy; W01.0XXA Fall on same level from slipping, tripping and stumbling without subsequent striking against object, initial encounter
CPT/HCPCS: 70450; 99284

== ENCOUNTER 2023-08-31 21:56 | Outpatient (CLI) | payer OTHER ==
[2023-08-31] MEDS: BETAMET ACET-BETAMETH SOD PHOS 6 MG/ML MDV IM SCH (22:53)
[2023-08-31 23:57] VITALS: BP 128/62; PULSE 91; RESP 18; TEMP 97.9
--- NOTE | 2023-10-02 18:21 | P.MSEPDOC ---
Presenting Problems - Arrival Data Date of Arrival on Unit: 08/31/23 Time of Arrival on Unit: 21:56 Mode of Transport: Ambulatory - Complaint OB-Reason for Admission/Chief Complaint: Possible Onset of Labor, Rule Out SROM Comment: cntrx x1 week, worsening today, small gush of fluid after shower at 2130 Medical History - Information : 2 Para: 1 Term: 1 : 0 Abortions: Spontaneous or Elective: 0 Number of Living Children: 1 - Gestational Age Gestational Age by MARRY (wks/days): 34 Weeks and 1 Days Review of Systems - Review of Systems Constitutional: No problems Breast: No problems ENT: No problems Cardiovascular: No problems Respiratory: No problems Gastrointestinal: No problems Genitourinary: No problems Musculoskeletal: No problems Neurological: No problems Skin: No problems Vital Signs - Temperature Temperature: 97.9 F Temperature Source: Temporal Artery Scan - Pulse Right Pulse Rate: 91 Pulse Assessment Method: Pulse Oximetry - Respirations Respiratory Rate: 18 Oxygen Delivery Method: Room Air O2 Sat by Pulse Oximetry: 95 - Blood Pressure Right Arm Blood Pressure: 128/62 Blood Pressure Mean: 84 Blood Pressure Source: Automatic Cuff Medical Screen Scoring - Cervical Exam Dilation (cm): 2 Station: -3 Membranes: Intact - Assessment - Baby A Baseline FHR: 125 Heart Rate - NICHD Category: Category I (Normal) Physician Notification - Physician Notified Physician Notified Date: 08/31/23 Physician Notified Time: 22:29 Physician: Tonie Mcfadden New Order Received: Yes - Notification Comment Comment: see obix notes for report given. orders for oral hydration, steroids x1 now, and return tomorrow for dose 2, d/c home if cervix is unchanged after 1 hr, continue bedrest & pelvic rest orders that were previously given in office Maternal Triage Index - Maternal Triage Index Presenting for scheduled procedure w/no complaint: No - Stat/Priority 1 Stat Priority 1: No - Urgent/Priority 2 Urgent Priority 2: No - Prompt/Priority 3 Prompt Priority 3: Yes Criteria Met for Priority 3: 34/1. cntrx, r/o srom, bedrest for PTL Disposition - Disposition OB Disposition: Discharge to home Discharge Date: 08/31/23 Discharge Time: 23:30 I agree with the RN Medical Screening Exam: Yes Case reviewed; plan agreed upon as documented in EMR&OBIX.: Yes Diagnosis: FALSE LABOR BEFORE 37 COMPLETED WEEKS OF GEST, THIRD TRI
== END 2023-08-31 23:30 | disposition home or self-care (01) ==
LOC: FBPOP 21:56
PROVIDERS: ATTEND Obstetrics & Gynecology Obstetrics
DX: O47.03 False labor before 37 completed weeks of gestation, third trimester (principal); Z3A.34 34 weeks gestation of pregnancy
CPT/HCPCS: 59025; 99214; 96372; 84112; J0702

== ENCOUNTER 2023-09-01 19:21 | Outpatient (CLI) | payer OTHER ==
[2023-09-01] MEDS: BETAMET ACET-BETAMETH SOD PHOS 6 MG/ML MDV IM SCH (19:36)
== END 2023-09-01 19:59 | disposition home or self-care (01) ==
LOC: FBPOP 19:21
PROVIDERS: ATTEND Obstetrics & Gynecology Obstetrics
DX: O60.03 Preterm labor without delivery, third trimester (principal); O26.893 Other specified pregnancy related conditions, third trimester; Z29.89 Encounter for other specified prophylactic measures; Z3A.34 34 weeks gestation of pregnancy
CPT/HCPCS: 59025; 96372; J0702; 99214

== ENCOUNTER 2023-09-21 16:04 | Outpatient (CLI) | payer OTHER ==
[2023-09-21 17:39] VITALS: BP 114/79; PULSE 93; RESP 18; TEMP 97.2
--- NOTE | 2023-09-22 08:14 | P.MSEPDOC ---
Presenting Problems - Arrival Data Date of Arrival on Unit: 09/21/23 Time of Arrival on Unit: 16:54 Mode of Transport: Ambulatory - Complaint OB-Reason for Admission/Chief Complaint: Possible Onset of Labor Comment: Contractions since 1429 Medical History - Information : 2 Para: 1 Term: 1 : 0 Abortions: Spontaneous or Elective: 0 Number of Living Children: 1 - Gestational Age Gestational Age by MARRY (wks/days): 37 Weeks and 1 Days Review of Systems - Review of Systems Constitutional: No problems Breast: No problems ENT: No problems Cardiovascular: No problems Respiratory: No problems Gastrointestinal: No problems Genitourinary: No problems Musculoskeletal: No problems Neurological: No problems Skin: No problems Vital Signs - Temperature Temperature: 97.2 F Temperature Source: Temporal Artery Scan - Pulse Right Sitting Brachial Pulse Rate: 93 Pulse Assessment Method: Automatic Cuff - Respirations Respiratory Rate: 18 Oxygen Delivery Method: Room Air O2 Sat by Pulse Oximetry: 99 - Blood Pressure Right Arm Sitting Blood Pressure: 114/79 Blood Pressure Mean: 90 Blood Pressure Source: Automatic Cuff Medical Screen Scoring - Cervical Exam Dilation (cm): 3 Effacement (%): 50 Station: -2 Membranes: Intact - Assessment - Baby A Baseline FHR: 120 Heart Rate - NICHD Category: Category I (Normal) NST: Reactive Physician Notification - Physician Notified Physician Notified Date: 09/21/23 Physician Notified Time: 17:25 Physician: Geenva Silva Order Received: Yes (ne home) Maternal Triage Index - Maternal Triage Index Presenting for scheduled procedure w/no complaint: No - Stat/Priority 1 Stat Priority 1: No - Urgent/Priority 2 Urgent Priority 2: No - Prompt/Priority 3 Prompt Priority 3: No - Non-Urgent/Priority 4 Non-Urgent Priority 4: Yes Criteria Met for Priority 4: irreg contractions, no cervical change after one hour Disposition - Disposition OB Disposition: Discharge to home, Written follow up instructions reviewed Discharge Date: 09/21/23 Discharge Time: 17:25 I agree with the RN Medical Screening Exam: Yes Case reviewed; plan agreed upon as documented in EMR&OBIX.: Yes Diagnosis: PRIMARY INADEQUATE CONTRACTIONS
== END 2023-09-21 17:28 | disposition home or self-care (01) ==
LOC: FBPOP 16:04
PROVIDERS: ATTEND Obstetrics & Gynecology
DX: O47.03 False labor before 37 completed weeks of gestation, third trimester (principal); Z3A.37 37 weeks gestation of pregnancy
CPT/HCPCS: 59025; 99213

== ENCOUNTER 2023-09-26 21:31 | Outpatient (CLI) | payer OTHER ==
[2023-09-27 02:41] VITALS: BP 120/63; PULSE 67; RESP 16; TEMP 97
--- NOTE | 2023-11-04 16:33 | P.MSEPDOC ---
Presenting Problems - Arrival Data Date of Arrival on Unit: 09/27/23 Time of Arrival on Unit: 21:31 Mode of Transport: Wheelchair - Complaint OB-Reason for Admission/Chief Complaint: Possible Onset of Labor Comment: Patient arrived at to triage significant other at side with c/o of contractions that started 15 mins ago, patient denies leaking of fluid, denies vaginal bleeding, denies sexual intercourse within the last 24 hours. Patient states she was moving to a new home today. PAtient states she can feel baby move. Medical History - Information : 2 Para: 1 Term: 1 : 0 Abortions: Spontaneous or Elective: 0 Number of Living Children: 1 - Gestational Age Gestational Age by MARRY (wks/days): 38 Weeks and 0 Days - History Comment: Patient arrived at to triage significant other at side with c/o of contractions that started 15 mins ago, patient denies leaking of fluid, denies vaginal bleeding, denies sexual intercourse within the last 24 hours. Patient states she was moving to a new home today. PAtient states she can feel baby move. Review of Systems - Review of Systems Constitutional: No problems Breast: No problems ENT: No problems Cardiovascular: No problems Respiratory: No problems Gastrointestinal: No problems Genitourinary: No problems Musculoskeletal: No problems Neurological: No problems Skin: No problems Vital Signs - Temperature Temperature: 97.0 F Temperature Source: Temporal Artery Scan - Pulse Pulse Oximetery Pulse Rate: 67 Pulse Assessment Method: Pulse Oximetry - Respirations Respiratory Rate: 16 Oxygen Delivery Method: Room Air O2 Sat by Pulse Oximetry: 98 - Blood Pressure Right Arm Blood Pressure: 120/63 Blood Pressure Mean: 82 Blood Pressure Source: Automatic Cuff Medical Screen Scoring - Cervical Exam Dilation (cm): 3 Effacement (%): 50 Station: 3 Membranes: Intact - Uterine Contractions Frequency From (mins): 2 Frequency To (mins): 5 Duration From (seconds): 30 Duration To (seconds): 100 Intensity: Mild Resting: Soft to palpation - Assessment - Baby A Baseline FHR: 120 Heart Rate - NICHD Category: Category I (Normal) NST: Reactive Physician Notification - Physician Notified Physician Notified Date: 09/27/23 Physician Notified Time: 21:31 Physician: Erika Matta Order Received: Yes - Notification Comment Comment: RN spoke with Dr. Matta via telephone cervical exam is the same check as 1 hour prior. Patient is now contraction 2-3 mins RN would like to keep patient 1 more hour and check cervix in [address] Matta is ok with keeping patient RN to send patient home if cervix has not changed in 1 hour per phone conversation with Dr. Matta. 2240 Cervix has not made change since first check RN performed. Maternal Triage Index - Non-Urgent/Priority 4 Non-Urgent Priority 4: Yes Criteria Met for Priority 4: Patient arrived at to triage significant other at side with c/o of contractions that started 15 mins ago, patient denies leaking of fluid, denies vaginal bleeding, denies sexual intercourse within the last 24 hours. Patient states she was moving to a new home today. PAtient states she can feel baby move. RN spoke with Dr. Matta via telephone cervical exam is the same check as 1 hour prior. Patient is now contraction 2-3 mins RN would like to keep patient 1 more hour and check cervix in [address] Matta is ok with keeping patient RN to send patient home if cervix has not changed in 1 hour per phone conversation with Dr. Matta. Disposition - Disposition OB Disposition: Discharge to home Discharge Date: 09/27/23 Discharge Time: 23:40 I agree with the RN Medical Screening Exam: Yes Physician's MSE Comment: I have neither seen nor examined the patient Case reviewed; plan agreed upon as documented in EMR&OBIX.: Yes Diagnosis: MATERNAL CARE FOR PROBLEM, UNSP, THIRD * DO NOT USE *
== END 2023-09-26 23:40 ==
LOC: FBPOP 21:31
PROVIDERS: ATTEND Obstetrics & Gynecology
DX: O47.1 False labor at or after 37 completed weeks of gestation (principal); Z3A.38 38 weeks gestation of pregnancy
CPT/HCPCS: 59025; 99213

== ENCOUNTER 2023-09-27 14:10 | Inpatient (IN) | payer OTHER ==
[2023-09-27] MEDS ORDERED: TERBUTALINE 1 MG/ML VIAL SQ PRN (14:26)
[2023-09-27] MEDS ORDERED: METHYLERGONOVINE 0.2 MG/ML 1 ML AMP IM PRN (14:26)
[2023-09-27] MEDS ORDERED: TRANEXAMIC 1,000 MG/100ML-NACL 1,000 MG in EMPTY BAG 1 BAG IV PRN (14:26)
[2023-09-27] MEDS ORDERED: CARBOPROST TROMETHAMINE 250 MCG/ML 1 ML AMP IM PRN (14:26)
[2023-09-27] MEDS ORDERED: miSOPROStoL 200 MCG TAB PO PRN (14:26)
[2023-09-27] MEDS ORDERED: LIDOCAINE 0.5% (PF) 5 MG/ML (50 ML SDV) SQ PRN (14:26)
[2023-09-27] MEDS ORDERED: OXYTOCIN 10 UNIT/ML 1 ML VIAL IM PRN (14:26)
[2023-09-27] MEDS: LACTATED RINGERS 1,000 ML IV SCH (14:49)
[2023-09-27] MEDS: PENICILLIN G POTASSIUM 5,000,000 UNIT in DEXTROSE 5% IN WATER 100 ML IVPB STA (14:53)
[2023-09-27 15:09] LABS: Basophils # (A) 0.1 k/uL (0-0.2); Basophils % (A) 1 %; Eosinophils # (A) 0.1 k/uL (0-0.7); Eosinophils % (A) 1 %; HCT 34.3 % (34.0-46.0); HGB 11.2 gm/dL (11.4-16.0); Lymphocytes # (A) 1.6 k/uL (1.0-4.8); Lymphocytes % (A) 15 %; MCH 25.8 pg (25.0-35.0); MCHC 32.6 g/dL (31.0-37.0); Mean Platelet Volume 7.4; Monocytes # (A) 0.6 k/uL (0-1.0); Monocytes % (A) 5 %; Neutrophils # (A) 8.3 k/uL (1.3-7.7); Neutrophils % (A) 77 %; Platelet Count 356 k/uL (150-450); RBC 4.35 m/uL (3.80-5.40); RDW 15.4 % (11.5-15.5); WBC 10.8 k/uL (3.8-10.6)
[2023-09-27] MEDS: PENICILLIN G POTASSIUM 2,500,000 UNIT in DEXTROSE 5% IN WATER 100 ML IVPB SCH (18:41)
[2023-09-27] MEDS: OXYTOCIN 30 UNITS/500 ML NS 30 UNIT in SALINE 1 500ML.BAG IV SCH (19:30)
[2023-09-27] MEDS ORDERED: LANOLIN CREAM 1 GM TUBE TOPICAL PRN (19:31)
[2023-09-27] MEDS ORDERED: diphenhydrAMINE 50 MG CAP PO PRN (19:31)
[2023-09-27] MEDS ORDERED: BENZOCAINE/MENTHOL SPRAY 1 GM/SPRAY AEROSOL TOPICAL PRN (19:31)
[2023-09-27] MEDS ORDERED: HYDROcodone/APAP 7.5-325MG 1 EACH TAB PO PRN (19:31)
[2023-09-27] MEDS ORDERED: diphenhydrAMINE 50 MG/ML 1 ML VIAL IVP PRN ×2 (19:31)
[2023-09-27] MEDS ORDERED: HYDROcodone/APAP 5-325MG 1 EACH TAB PO PRN (19:31)
[2023-09-27] MEDS ORDERED: SIMETHICONE 80 MG CHEWABLE PO PRN (19:31)
[2023-09-27] MEDS ORDERED: ZOLPIDEM 5 MG TAB PO PRN (19:31)
[2023-09-27] MEDS ORDERED: HYDROCORTISONE 2.5% RECTAL CREAM 30 GM TUBE RECTAL PRN (19:31)
[2023-09-27] MEDS ORDERED: diphenhydrAMINE 25 MG CAP PO PRN (19:31)
--- NOTE | 2023-09-27 19:38 | P.HPOB ---
History of Present Illness H&P Date: 09/27/23 Chief Complaint: 38-0/7 weeks, labor The patient is a 23-year-old 2 para 1-0-0-1 admitted at 38-0/7 weeks as established by last menstrual period confirmed by second trimester ultrasound. She is admitted with documented cervical change from a triage visit yesterday and found at 5 cm of dilation with active contractions. On labor delivery, all signs are reassuring with a category 1 heart rate tracing. Her has been essentially uncomplicated though she is known to be Rh- and received RhoGAM at 28 weeks she additionally was found to be group B strep positive. Obstetrical history: 2 para 1-0-0-1 with 1 term vaginal delivery without complications. Current statistics are listed in history of present illness. EDC of 10/11/2023 was established by last menstrual period and confirmed by second trimester ultrasound. Laboratory workup demonstrates a blood type of a negative with a negative antibody screen. Rubella status is i mmune. The remainder of the laboratory workup was within normal limits. Early Glucola was normal as was second trimester Glucola. Group B strep status is positive. Gynecologic history: Unremarkable though she was found to be chlamydia positive at her new OB visit which was treated and tested for cure. Review of Systems Review of systems is confined to history of present illness. Past Medical History Past Medical History: Blood Disorder, GERD/Reflux Additional Past Medical History / Comment(s): Crohns dx. COLITIS AND POLYPS. IRON DEFICIENCY ANEMIA. History of Any Multi-Drug Resistant Organisms: None Reported Additional Past Surgical History / Comment(s): cleft pallet. colonoscopies WITH 3 POLYPS REMOVED. Past Anesthesia/Blood Transfusion Reactions: No Reported Reaction Smoking Status: Former smoker - Past Family History Mother Family Medical History: No Reported History Medications and Allergies Home Medications Medication Instructions Recorded Confirmed Type Vit No.179/Iron/Folic 1 tab PO DAILY 10/25/22 09/26/23 History [ Tablet] Aspirin 81 mg PO DAILY 09/21/23 09/26/23 History Ondansetron [Zofran] 4 mg PO DAILY PRN 09/21/23 09/26/23 History Allergies Allergy/AdvReac Type Severity Reaction Status Date / Time No Known Allergies Allergy Verified 09/27/23 14:26 Exam Vital Signs Temp Pulse Resp BP Pulse Ox 09/27/23 14:58 97.4 F L 61 18 118/70 09/27/23 14:40 96.7 F L 70 18 118/75 98 Intake and Output 09/27/23 09/27/23 09/27/23 06:59 14:59 22:59 Other: Weight 92.533 kg In general, this is a well-developed, mild to moderately obese white female in no acute distress. Her heart has a regular rhythm and rate without murmur. Her lungs are clear to auscultation bilaterally in all salazar. Her abdomen is gravid, nondistended, has normal active bowel sounds, soft, nontender, and without any palpable masses aside from the uterine fundus. Her extremities are without any cyanosis, clubbing, or significant edema and are nontender to palpation bilaterally. Digital cervical examination at the time of admission demonstrated cervix to be 5 cm dilated, 50% effaced, the vertex and presentation at -2 station. Membranes are intact. Results Result Diagrams: 09/27/23 14:42 Abnormal Lab Results - Last 24 Hours (Table) 09/27/23 Range/Units 14:42 WBC 10.8 H (3.8-10.6) k/uL Hgb 11.2 L (11.4-16.0) gm/dL MCV 79.0 L (80.0-100.0) fL Neutrophils # 8.3 H (1.3-7.7) k/uL Assessment and Plan (1) Active labor at term Current Visit: Yes Status: Acute Code(s): DXL3728 - SNOMED Code(s): 48603869 (2) Mother positive for group B Streptococcus colonization Current Visit: Yes Status: Acute Code(s): P00.82 - NB AFF BY (POSITIVE) MATERN GROUP B STREP (GBS) COLONIZATION SNOMED Code(s): 82713690507287 Plan: The patient is admitted for active management of labor. She has requested an epidural catheter which was placed shortly after admission. Antibiotic prophylaxis was started from the time of admission and the bag of water will be left intact until 4 hours unless the patient deliver sooner. She will have close maternal and surveillance and expectant management will be practiced.
--- NOTE | 2023-09-27 19:40 | P.PROBDLV ---
Vaginal Delivery Note - . Vaginal Delivery Note: The patient is a 23-year-old 2 para 1-0-0-1 admitted at 38-0/7 weeks by good dating parameters. She is admitted in early active labor with all signs reassuring, category 1 heart rate tracing. She is Rh- and received RhoGAM at 28 weeks. She is also known to be group B strep positive. Upon admission, antibiotic prophylaxis was started. She shortly after that had an epidural catheter placed for analgesia. She made steady progress through the active phase of labor and, at approximately 4 hours or more after the initial dose of antibiotics, artificial rupture of membranes was carried out demonstrating clear fluid. She then progressed quickly to anterior lip and was able to push past that to a normal spontaneous vaginal delivery of a viable 6 pound 0 ounce baby girl with Apgars of 9 at 1 minute and 9 at 5 minutes delivered in the direct occiput anterior position. The placenta was delivered spontaneously, intact, and grossly normal with a grossly normal three-vessel cord inserted approximately 4 cm from the margin of the placental disc. There were no lacerations of the perineum, vagina, or cervix. Estimated blood loss for the case was approximate 100 mL. There were no complications. Both mother and infant are resting comfortably in recovery.
[2023-09-27] MEDS: SENNOSIDES-DOCUSATE SODIUM 1 EACH TAB PO SCH (21:20)
[2023-09-28] MEDS: Rhogam IMMUNE GLOBULIN 1,500 UNIT/1 ML IM ONE (00:37)
[2023-09-28] MEDS: IBUPROFEN 600 MG TAB PO PRN (06:54)
[2023-09-28 07:43] LABS: Basophils # (A) 0.1 k/uL (0-0.2); Basophils % (A) 1 %; Eosinophils # (A) 0.1 k/uL (0-0.7); Eosinophils % (A) 1 %; HCT 33.5 % (34.0-46.0); HGB 10.9 gm/dL (11.4-16.0); Hypochromasia Slight; Lymphocytes # (A) 1.9 k/uL (1.0-4.8); Lymphocytes % (A) 19 %; MCHC 32.5 g/dL (31.0-37.0); MCV 80.1 fL (80.0-100.0); Mean Platelet Volume 7.6; Monocytes # (A) 0.7 k/uL (0-1.0); Monocytes % (A) 6 %; Neutrophils # (A) 7.2 k/uL (1.3-7.7); Neutrophils % (A) 71 %; Platelet Count 270 k/uL (150-450); RBC 4.18 m/uL (3.80-5.40); RDW 15.4 % (11.5-15.5); WBC 10.2 k/uL (3.8-10.6)
[2023-09-28] MEDS: ACETAMINOPHEN TAB 325 MG TAB PO PRN (08:19)
--- NOTE | 2023-09-28 11:41 | P.PNOBGVD ---
Subjective - Subjective Patient reports: Reports appetite normal, Reports voiding normally, Reports pain well controlled, Reports ambulating normally : doing well Objective - Latest Vital Signs Latest vital signs: Vital Signs Temp Pulse Resp BP Pulse Ox 09/28/23 08:00 98.1 F 79 18 125/78 97 09/28/23 04:00 98.3 F 72 16 103/64 98 09/28/23 00:00 98.0 F 67 16 115/76 95 09/27/23 23:32 16 09/27/23 21:32 88 16 113/57 99 09/27/23 21:17 97.8 F 81 16 113/58 99 09/27/23 21:02 98.3 F 76 16 128/61 98 09/27/23 20:47 65 16 110/55 97 09/27/23 20:32 75 16 116/57 98 09/27/23 20:17 98.4 F 66 16 122/58 97 09/27/23 20:02 98.1 F 65 16 118/57 98 09/27/23 19:47 98.4 F 73 16 112/57 99 09/27/23 19:32 98.2 F 72 16 108/72 98 09/27/23 14:58 97.4 F L 61 18 118/70 09/27/23 14:40 96.7 F L 70 18 118/75 98 Intake and Output 09/27/23 09/28/23 09/28/23 22:59 06:59 14:59 Intake Total 167 Output Total 176 Balance -9 Intake: Intake, IV Titration 167 Amount Oxytocin 30 Units/500 ml 167 Ns 30 unit In Saline 1 500ml.bag @ Per Protocol IV .Q0M [facility] Rx#:[id number] Output: Estimated Blood Loss 100 Output, Quantitative 76 Blood Loss Other: Voiding Method Toilet # Voids 1 2 1 - Exam Extremities: Present: normal Abdomen: Present: normal appearance, soft Uterus: Present: normal, firm (The uterine fundus is tonic and nontender well below the umbilicus.) - Labs Labs: Abnormal Lab Results - Last 24 Hours (Table) 09/27/23 09/28/23 Range/Units 14:42 06:42 WBC 10.8 H (3.8-10.6) k/uL Hgb 11.2 L 10.9 L (11.4-16.0) gm/dL Hct 33.5 L (34.0-46.0) % MCV 79.0 L (80.0-100.0) fL Neutrophils # 8.3 H (1.3-7.7) k/uL Assessment and Plan (1) Active labor at term Current Visit: Yes Status: Acute Code(s): ZLS3211 - SNOMED Code(s): 13201660 (2) Mother positive for group B Streptococcus colonization Current Visit: Yes Status: Acute Code(s): P00.82 - NB AFF BY (POSITIVE) MATERN GROUP B STREP (GBS) COLONIZATION SNOMED Code(s): 37209174509499 (3) Normal spontaneous vaginal delivery Current Visit: Yes Status: Acute Code(s): O80 - ENCOUNTER FOR FULL-TERM UNCOMPLICATED DELIVERY SNOMED Code(s): 15128945 Plan: The patient has opted to remain in the hospital for a second day. Continue routine care and I would anticipate discharge home tomorrow.
[2023-09-29 02:25] VITALS: TEMP 97.8
[2023-09-29 09:23] VITALS: BP 125/78; PULSE 80; RESP 18
--- NOTE | 2023-09-29 09:56 | P.DS ---
Providers Date of admission: 09/27/23 14:26 Expected date of discharge: 09/29/23 Attending physician: Erika Matta MD Primary care physician: Stated None - Discharge Diagnosis(es) (1) Active labor at term Current Visit: Yes Status: Acute (2) Mother positive for group B Streptococcus colonization Current Visit: Yes Status: Acute (3) Normal spontaneous vaginal delivery Current Visit: Yes Status: Acute Hospital Course: The patient is a 23-year-old 2 para 1-0-0-1 admitted at 38-0/7 weeks by good dating parameters. She is admitted in early labor with all signs reassuring. Her was uncomplicated though she was Rh- and received RhoGAM and was additionally found to be group B strep positive. On labor and delivery, she had antibiotic prophylaxis started and her amniotic membranes were left intact in order to attempt to achieve 4 hours of antibiotic prophylaxis prior to delivery which occurred. At approximately 4 hours or slightly more after antibiotic was started, artificial rupture of membranes was carried out and she progressed quickly to complete and then pushed to a normal spontaneous vaginal delivery of a viable 6 pound 0 ounce baby girl with Apgars of 9 at 1 minute and 9 at 5 minutes. Her course was unremarkable with vital signs remaining stable and her temperature was afebrile throughout. She was deemed stable for discharge on day #2 and was discharged home to follow-up in the office in 6 weeks time routinely. Discharge instructions included calling for any significantly increased bleeding or foul-smelling lochia, significantly increased fever or abdominal pain, perineal complaints, breast complaints, or anything else that concerned her. She was additionally instructed to have nothing in the vagina for at least 6 weeks time to include in tercourse. She understood all of her instructions and agrees to follow-up as noted above. Discharge medications included continued vitamins as she is reportedly attempting to breast-feed. She additionally was to use [id number] analgesic pain medications. After discussion of contraception at which time she reported her partner is intending to have a vasectomy and she is strongly considering tubal ligation, she has requested Depo-Provera prior to discharge which will be provided. Maternal blood type is A negative and rubella status is immune. Procedures: #1. Antibiotic prophylaxis #2. Artificial rupture of membranes #3. Normal spontaneous vaginal delivery Patient Condition at Discharge: Stable Plan - Discharge Summary New Discharge Prescriptions: No Action Ondansetron [Zofran] 4 mg PO DAILY PRN PRN Reason: Nausea And Vomiting Aspirin 81 mg PO DAILY Vit No.179/Iron/Folic [ Tablet] 1 tab PO DAILY Discharge Medication List Vit No.179/Iron/Folic [ Tablet] 1 tab PO DAILY 10/25/22 [History] Aspirin 81 mg PO DAILY 09/21/23 [History] Ondansetron [Zofran] 4 mg PO DAILY PRN 09/21/23 [History] Follow up Appointment(s)/Referral(s): Erika Matta MD [STAFF PHYSICIAN] - 6 Weeks Discharge Disposition: HOME SELF-CARE
[2023-09-29] MEDS: medroxyPROGESTERone 150 MG/ML 1ML VIAL IM ONE (10:31)
== END 2023-09-29 11:15 | disposition home or self-care (01) | DRG 806 ==
LOC: FBPOP 14:10 → 4FBP 14:26
PROVIDERS: ADMIT Obstetrics & Gynecology; ATTEND Obstetrics & Gynecology
PROC: 10E0XZZ Delivery of Products of Conception, External Approach (ICD-10-PCS; principal; 2023-09-27)
PROC: 10907ZC Drainage of Amniotic Fluid, Therapeutic from Products of Conception, Via Natural or Artificial Opening (ICD-10-PCS; 2023-09-27)
PROC: 3E0234Z Introduction of Serum, Toxoid and Vaccine into Muscle, Percutaneous Approach (ICD-10-PCS; 2023-09-28)
DX: O99.824 Streptococcus B carrier state complicating childbirth (principal); K50.90 Crohn's disease, unspecified, without complications; Z37.0 Single live birth; O62.3 Precipitate labor; O99.62 Diseases of the digestive system complicating childbirth; K21.9 Gastro-esophageal reflux disease without esophagitis; O99.02 Anemia complicating childbirth; D50.9 Iron deficiency anemia, unspecified; Z3A.38 38 weeks gestation of pregnancy; Z79.82 Long term (current) use of aspirin; Z87.891 Personal history of nicotine dependence; O26.893 Other specified pregnancy related conditions, third trimester; Z67.41 Type O blood, Rh negative
CPT/HCPCS: 85025; 85461; 86850; 86900; 86901; 99213

== ENCOUNTER 2024-01-14 16:57 | Emergency (ER) | payer OTHER ==
[2024-01-14 17:19] VITALS: RESP 16
--- NOTE | 2024-01-14 18:42 | ED ---
Extremity Problem HPI - General Chief complaint: Extremity Problem,Nontraumatic Stated complaint: Swollen feet Time Seen by Provider: 01/14/24 17:11 Source: patient, RN notes reviewed Mode of arrival: ambulatory Limitations: no limitations - History of Present Illness Initial comments: This is a 24-year-old female presents emergency department chief complaint of bilateral lower extremity edema and a left lower extremity pain. patient states that she has been working on restriction over the past 3 weeks and has been doing a lot of time on her feet without rest. Patient states the pain is primarily located to the plantar aspect of bilateral feet and has been experiencing edema of the feet and ankles. Patient denies any recent trauma or known injuries. She denies recent prolonged travel, estrogen use, pain or tenderness. Denies shortness of breath, chest pain, heart palpitations, dizziness, lightheadedness. Denies blood thinner use. Denies history of blood clotting disorders or DVT or PE. - Related Data Home Medications Medication Instructions Recorded Confirmed Ketorolac [Toradol] 10 mg PO Q8HR PRN 01/15/24 01/15/24 Allergies Allergy/AdvReac Type Severity Reaction Status Date / Time No Known Allergies Allergy Verified 01/15/24 13:22 Review of Systems ROS Statement: Those systems with pertinent positive or pertinent negative responses have been documented in the HPI. ROS Other: All systems not noted in ROS Statement are negative. Past Medical History Past Medical History: Blood Disorder, GERD/Reflux Additional Past Medical History / Comment(s): Crohns dx. COLITIS AND POLYPS. IRON DEFICIENCY ANEMIA. History of Any Multi-Drug Resistant Organisms: None Reported Additional Past Surgical History / Comment(s): cleft pallet. colonoscopies WITH 3 POLYPS REMOVED. Past Anesthesia/Blood Transfusion Reactions: No Reported Reaction Past Psychological History: No Psychological Hx Reported Smoking Status: Former smoker - Past Family History Mother Family Medical History: No Reported History General Exam Limitations: no limitations General appearance: alert, in no apparent distress Head exam: Present: atraumatic, normocephalic, normal inspection Eye exam: Present: normal appearance, PERRL, EOMI. Absent: scleral icterus, conjunctival injection, periorbital swelling ENT exam: Present: normal exam, mucous membranes moist Neck exam: Present: normal inspection. Absent: tenderness, meningismus, lymphadenopathy Respiratory exam: Present: normal lung sounds bilaterally. Absent: respiratory distress, wheezes, rales, rhonchi, stridor Cardiovascular Exam: Present: regular rate, normal rhythm, normal heart sounds. Absent: systolic murmur, diastolic murmur, rubs, gallop, clicks GI/Abdominal exam: Present: soft, normal bowel sounds. Absent: distended, tenderness, guarding, rebound, rigid Extremities exam: Present: other (bilateral LE edema, non-pitting) Right Lower Leg exam: Present: full ROM, tenderness (lateral with 3 mild spots of ecchymosis from previous injury) Neurovascular tendon exam: Present: no vascular compromise. Absent: pulse deficit, abnormal cap refill, motor deficit, sensory deficit Gait: observed and normal Back exam: Present: normal inspection Neurological exam: Present: alert, oriented X3, CN II-XII intact Psychiatric exam: Present: normal affect, normal mood Skin exam: Present: warm, dry, intact, normal color. Absent: rash Course Vital Signs 01/14/24 01/14/24 17:16 21:14 Temperature 98.4 F 97.9 F Pulse Rate 87 79 Respiratory 16 16 Rate Blood Pressure 112/72 118/74 O2 Sat by Pulse 99 98 Oximetry Medical Decision Making - Medical Decision Making Was pt. sent in by a medical professional or institution (, PA, HAND ENDBAND CUTTER, urgent care, hospital, or group home...) When possible be specific @ -No Did you speak to anyone other than the patient for history (EMS, parent, family, police, friend...)? What history was obtained from this source @ -No Did you review nursing and triage notes (agree or disagree)? Why? @ -I reviewed and agree with nursing and triage notes Were old charts reviewed (outside hosp., previous admission, EMS record, old EKG, old radiological studies, urgent care reports/EKG's, group home records)? Report findings @ -No old charts were reviewed Differential Diagnosis (chest pain, altered mental status, abdominal pain women, abdominal pain men, vaginal bleeding, weakness, fever, dyspnea, syncope, headache, dizziness, GI bleed, back pain, seizure, CVA, palpatations, mental health, musculoskeletal)? @ -DVT, superficial thrombophlebitis, peripheral edema, venous insufficiency, plantar fasciitis, tendinitis, this list is not all inclusive EKG interpreted by me (3pts min.). @ -none X-rays interpreted by me (1pt min.). @ -None done CT interpreted by me (1pt min.). @ -None done U/S interpreted by me (1pt. min.). @ -Venous duplex ultrasound of the right lower extremity is negative for DVT. What testing was considered but not performed or refused? (CT, X-rays, U/S, labs)? Why? @ -None What meds were considered but not given or refused? Why? @ -None Did you discuss the management of the patient with other professionals (professionals i.e. , PA, HAND ENDBAND CUTTER, lab, RT, psych nurse, social services analyst, insert cutter, teacher, sba business development officer, employment case manager)? Give summary @ -No Was smoking cessation discussed for >3mins.? @ -No Was critical care preformed (if so, how long)? @ -No Were there social determinants of health that impacted care today? How? (Homelessness, low income, unemployed, alcoholism, drug addiction, transportation, low edu. Level, literacy, decrease access to med. care, long term, rehab)? @ -No Was there de-escalation of care discussed even if they declined (Discuss DNR or withdrawal of care, Hospice)? DNR status @ -No What co-morbidities impacted this encounter? (DM, HTN, Smoking, COPD, CAD, Cancer, CVA, ARF, Chemo, Hep., AIDS, mental health diagnosis, sleep apnea, morbid obesity)? @ -None Was patient admitted / discharged? Hospital course, mention meds given and route, prescriptions, significant lab abnormalities, going to OR and other pertinent info. @ -discharged. 24-year-old female with bilateral lower extremity edema and pain. I will examination patient is neurovascularly intact with no signs of muscular weakness. Vitals are within normal limits. With concern for possible DVT ultrasound was ordered that was negative. Patient provided with dose of Toradol in the emergency department and recommended to use compression stockings and elevate her feet while she is not at work. Patient is provided prescription for Toradol to take as needed for anti-inflammatory properties and pain. There are no red flag findings concerning for further pathology. Patient is in agreement with this. Recommend that she follows up with her primary care provider this week for further evaluation. All questions answered at bedside strict return parameters kaur the patient she is verbalized understanding. Patient is with a work note as well. Discussed with Dr. Douglass. Undiagnosed new problem with uncertain prognosis? @ -No Drug Therapy requiring intensive monitoring for toxicity (Heparin, Nitro, Insulin, Cardizem)? @ -No Were any procedures done? @ -No Diagnosis/symptom? @ -Extremity edema, venous insufficiency, tendinitis Acute, or Chronic, or Acute on Chronic? @ -acute Uncomplicated (without systemic symptoms) or Complicated (systemic symptoms)? @ -Uncomplicated Side effects of treatment? @ -No Exacerbation, Progression, or Severe Exacerbation? @ -No Poses a threat to life or bodily function? How? (Chest pain, USA, SC, pneumonia, PE, COPD, DKA, ARF, appy, cholecystitis, CVA, Diverticulitis, Homicidal, Suicidal, threat to staff... and all critical care pts) @ -No Disposition Clinical Impression: Tendonitis, Peripheral edema Disposition: HOME SELF-CARE Condition: Good Instructions (If sedation given, give patient instructions): Edema (ED) Additional Instructions: Return to the emergency department for any new or worsening symptoms. Take prescribed medication as needed for anti-inflammation. On that you wear compression stockings while at work to prevent furthering edema Is patient prescribed a controlled substance at d/c from ED?: No Referrals: Brary Cabral DO [Primary Care Provider] - 1-2 days Time of Disposition: 20:25
--- NOTE | 2024-01-14 19:53 | US ---
EXAMINATION TYPE: US venous doppler duplex LE RT DATE OF EXAM: 01/14/2024 7:44 PM COMPARISON: NONE CLINICAL INDICATION: Female, 24 years old with history of pain of calf, pain with ambulation; Foot sw elling for 5 days. No hx DVT, Patient not on thinners. SIDE PERFORMED: Right TECHNIQUE: The lower extremity deep venous system is examined utilizing real time linear array sonog carmela with graded compression, doppler sonography and color-flow sonography. VESSELS IMAGED: Common Femoral Vein Deep Femoral Vein Greater Saphenous Vein * Femoral Vein Popliteal Vein Small Saphenous Vein * Proximal Calf Veins (* superficial vessels) Right Leg: Appears negative for DVT. There is an incidental finding of a 2.6cm lymph node seen in th e right groin with a 5mm cortex. IMPRESSION: Grayscale, color doppler, spectral doppler imaging performed of the deep veins of the lo wer extremities. There is normal flow, compressibility, vascular waveforms. No DVT in the right lower extremity. Mildly prominent right inguinal lymph node. 0.9 cm short axis.
[2024-01-14] MEDS: KETOROLAC 15 MG/ML 1 ML VIAL IM STA (21:10)
[2024-01-14 21:16] VITALS: BP 118/74; PULSE 79; TEMP 97.9
== END 2024-01-14 21:15 | disposition home or self-care (01) ==
LOC: EC 16:57
DX: R60.9 Edema, unspecified (principal); Z87.891 Personal history of nicotine dependence
CPT/HCPCS: 93971; 99283; 96372; J1885

== ENCOUNTER 2024-01-17 06:12 | Day surgery (SDC) | payer OTHER ==
[2024-01-15 13:43] VITALS: BMI 37.8
[~2024-01-17 06:12] MED LIST changes: -INFLIXIMAB-DYYB 500 MG in SODIUM CHLORIDE 0.9% 250 ML IV NR; +Pre Op ABX Message 1 EACH MISC MISCELLANE ONE; -SODIUM CHLORIDE 0.9% 500 ML 500 ML in EMPTY BAG 1 BAG IV PRN
[2024-01-17] MEDS ORDERED: LIDOCAINE 1% (10MG/ML) FOR IV START INTRADERMA PRN (06:15)
[2024-01-17] MEDS ORDERED: droPERidol 5 MG/2 ML VIAL IVP ONE (06:15)
[2024-01-17] MEDS: IV FLUID CONTINUATION 1,000 ML IV ONE (06:36)
[2024-01-17 06:48] VITALS: RESP 16
[2024-01-17] MEDS ORDERED: HYDROmorphone 0.5 MG/0.5 ML SYRINGE IVP PRN (07:00)
[2024-01-17] MEDS: DEXAMETHASONE SOD PHOSPHATE 4 MG/ML 1 ML VIAL IV ONE (07:01)
[2024-01-17] MEDS: LACTATED RINGERS 1,000 ML IV SCH (07:02)
[2024-01-17] MEDS: ONDANSETRON 4 MG/2 ML VIAL IVP ONE (07:02)
[2024-01-17] MEDS ORDERED: KETOROLAC 30 MG/ML 1 ML VIAL ONE (07:28)
[2024-01-17] MEDS ORDERED: ROCURONIUM 10 MG/ML (5 ML VIAL) IV ONE (07:28)
[2024-01-17] MEDS ORDERED: PROPOFOL 10 MG/ML 20 ML VIAL IV ONE (07:28)
[2024-01-17] MEDS ORDERED: fentaNYL (PF) 50 MCG/ML 2 ML AMP ONE (07:28)
[2024-01-17] MEDS ORDERED: MIDAZOLAM 2 MG/2 ML VIAL ONE (07:28)
[2024-01-17] MEDS ORDERED: NEOSTIGMINE 1 MG/ML 10 ML VIAL ONE (07:28)
[2024-01-17] MEDS ORDERED: GLYCOPYRROLATE 0.2 MG/ML 2 ML VIAL ONE (07:28)
[2024-01-17] MEDS ORDERED: LIDOCAINE 1% INJ 10MG/ML (20 ML MDV) ONE (07:28)
[2024-01-17] MEDS: BUPIVACAINE (PF) 0.25% 30 ML VIAL SQ ONE ×2 (07:35→08:19)
--- NOTE | 2024-01-17 08:24 | P.OP ---
Date of Procedure: 01/17/24 Preoperative Diagnosis: 1. Family Planning 2. Desires Permanent Contraception Postoperative Diagnosis: Same Procedure(s) Performed: Laparoscopic Bilateral Salpingectomy Implants: None Anesthesia: MINNAA Surgeon: Erika Matta Estimated Blood Loss (ml): 5 Urine output (ml): 25 Pathology: other (bilateral fallopian tubes) Disposition: same day Indications for Procedure: Ms. Murillo is a 24 year old who presents for permanent contraception via La paroscopic Bilateral Salpingectomy. The risks, benefits, and alternatives to this surgery are discussed with the patient including risk of bleeding, infection, damage to surrounding structures, and post-operative VTE. The patient understands these risks and desires to proceed with surgery. All questions are answered. Operative Findings: Normal pelvis. Uterus, bilateral fallopian tubes, and ovaries all unremarkable. Description of Procedure: Patient was taken to the OR with IV fluid running and pneumatic compression stockings on both legs. General anesthesia was obtained without difficulty. The patient was placed in the dorsal lithotomy position with Gary-type stirrups with knees bent at 30 degree angles. Examination under anesthesia revealed a normal-sized, anteverted uterus. The patient as prepared and draped. The bladder was emptied. A speculum was placed into the vagina. The anterior lip of the cervix was grasped with a single-toothed tenaculum. A uterine manipulator was introduced. A horizontal skin incision was made at the umbilical fold. The periumbilical skin was manually elevated. A 5mm trocar was inserted into the abdomen under direct laparoscopic visualization. Intraabdominal survey revealed lack of any visceral or vascular injury. The pelvic and abdominal anatomy was noted as above. Two additional laparoscopic assit ports were placed in the right and left lower quadrants. A grasper was used to coal picker the fimbriated end of the left fallopian tube. The LigaSure device was used to seal and ligate the fallopian tube sequentially to the level of the uterine cornua. The fallopian tube was then transected and removed through the laparoscopic port. This process was repeated on the right side. Excellent hemostasis was noted at the end of the case. The patient tolerated the procedure well. All instruments were removed from the abdomen and vagina, and all counts were correct times two. The patient was taken to the recovery room in stable condition.the recovery room in stable condition.
[2024-01-17 08:31] VITALS: TEMP 97.5
[2024-01-17] MEDS: LACTATED RINGERS 1,000 ML IV ONE (08:57)
[2024-01-17 09:55] VITALS: BP 99/66; PULSE 62
== END 2024-01-17 10:00 | disposition home or self-care (01) ==
LOC: OR 06:12
PROVIDERS: ATTEND Obstetrics & Gynecology
DX: Z30.2 Encounter for sterilization (principal); Z87.891 Personal history of nicotine dependence
CPT/HCPCS: 81025; 58661; J2250; J1100; J2710; J2405; J2001; J3010; J1885; J2704; J0665; J1596

== ENCOUNTER 2024-03-09 23:15 | Emergency (ER) | payer OTHER ==
--- NOTE | 2024-03-09 23:24 | ED ---
General Adult HPI - General Stated complaint: Toothache, Nausea Time Seen by Provider: 03/09/24 23:16 Source: patient, RN notes reviewed Mode of arrival: ambulatory Limitations: no limitations - History of Present Illness Initial comments: 24-year-old female presents emergency department complaint of right upper dental pain. Patient states it has been very bothersome over the last 24 hours. She states she has known poor dentition but states that usually does not bother her like this. She states pain is making her nauseated no reported fever no difficulty swallowing. Patient offers no other complaints. - Related Data Home Medications Medication Instructions Recorded Confirmed Ketorolac [Toradol] 10 mg PO Q8HR PRN 01/15/24 01/15/24 Previous Rx's Medication Instructions Recorded Acetaminophen Tab [Tylenol] 650 mg PO Q6H PRN #30 tab 01/17/24 Ibuprofen [Motrin] 600 mg PO Q6HR PRN #30 tab 01/17/24 oxyCODONE HCL [Roxicodone] 5 mg PO Q6HR PRN 3 Days #12 tab 01/17/24 Amoxic-Pot Clav 875-125Mg 1 tab PO Q12HR #20 tab 03/09/24 [Augmentin 875-125] Ibuprofen [Motrin] 600 mg PO Q8HR PRN #20 tab 03/09/24 Ondansetron Odt [Zofran Odt] 4 mg PO Q8HR PRN #10 tab 03/09/24 Allergies Allergy/AdvReac Type Severity Reaction Status Date / Time No Known Allergies Allergy Verified 01/17/24 06:43 Review of Systems ROS Statement: Those systems with pertinent positive or pertinent negative responses have been documented in the HPI. ROS Other: All systems not noted in ROS Statement are negative. Past Medical History Past Medical History: Blood Disorder, GERD/Reflux Additional Past Medical History / Comment(s): Crohns dx. COLITIS AND POLYPS. IRON DEFICIENCY ANEMIA. History of Any Multi-Drug Resistant Organisms: None Reported Additional Past Surgical History / Comment(s): cleft pallet. colonoscopies WITH 3 POLYPS REMOVED. Past Anesthesia/Blood Transfusion Reactions: No Reported Reaction Past Psychological History: No Psychological Hx Reported Smoking Status: Former smoker - Past Family History Mother Family Medical History: No Reported History General Exam General appearance: alert, in no apparent distress Head exam: Present: atraumatic, normocephalic, normal inspection Eye exam: Present: normal appearance, PERRL, EOMI. Absent: scleral icterus, conjunctival injection, periorbital swelling ENT exam: Present: normal exam, mucous membranes moist, TM's normal bilaterally. Absent: normal oropharynx (Poor dentition dental erosion and fracture right upper no drainable abscess) Neck exam: Present: normal inspection, full ROM. Absent: tenderness, meningismus, lymphadenopathy Respiratory exam: Present: normal lung sounds bilaterally. Absent: respiratory distress, wheezes, rales, rhonchi, stridor Cardiovascular Exam: Present: regular rate, normal rhythm, normal heart sounds. Absent: systolic murmur, diastolic murmur, rubs, gallop, clicks Course Vital Signs 03/09/24 23:24 Temperature 98 F Pulse Rate 59 L Respiratory 20 Rate Blood Pressure 131/73 O2 Sat by Pulse 100 Oximetry Medical Decision Making - Medical Decision Making Was pt. sent in by a medical professional or institution (, PA, LAB NURSE, urgent care, hospital, or group home...) When possible be specific @ -No Did you speak to anyone other than the patient for history (EMS, parent, family, police, friend...)? What history was obtained from this source @ -No Did you review nursing and triage notes (agree or disagree)? Why? @ -I reviewed and agree with nursing and triage notes Were old charts reviewed (outside hosp., previous admission, EMS record, old EKG, old radiological studies, urgent care reports/EKG's, group home records)? Report findings @ -No old charts were reviewed Differential Diagnosis (chest pain, altered mental status, abdominal pain women, abdominal pain men, vaginal bleeding, weakness, fever, dyspnea, syncope, headache, dizziness, GI bleed, back pain, seizure, CVA, palpatations, mental health, musculoskeletal)? @ -Dental pain, dental abscess EKG interpreted by me (3pts min.). @ -As above X-rays interpreted by me (1pt min.). @ -None done CT interpreted by me (1pt min.). @ -None done U/S interpreted by me (1pt. min.). @ -None done What testing was considered but not performed or refused? (CT, X-rays, U/S, labs)? Why? @ -None What meds were considered but not given or refused? Why? @ -None Did you discuss the management of the patient with other professionals (professionals i.e. , PA, LAB NURSE, lab, RT, psych nurse, director social, patient registration rep, teacher, fare enforcement officer, clinical case manager)? Give summary @ -No Was smoking cessation discussed for >3mins.? @ -No Was critical care preformed (if so, how long)? @ -No Were there social determinants of health that impacted care today? How? (Homelessness, low income, unemployed, alcoholism, drug addiction, transportation, low edu. Level, literacy, decrease access to med. care, residential, rehab)? @ -No Was there de-escalation of care discussed even if they declined (Discuss DNR or withdrawal of care, Hospice)? DNR status @ -No What co-morbidities impacted this encounter? (DM, HTN, Smoking, COPD, CAD, Cancer, CVA, ARF, Chemo, Hep., AIDS, mental health diagnosis, sleep apnea, morbid obesity)? @ -None Was patient admitted / discharged? Hospital course, mention meds given and route , prescriptions, significant lab abnormalities, going to OR and other pertinent info. @ -Patient has dental infection, no drainable abscess patient was provided analgesics and antibiotics with close follow-up return parameters discussed. Undiagnosed new problem with uncertain prognosis? @ -No Drug Therapy requiring intensive monitoring for toxicity (Heparin, Nitro, Insulin, Cardizem)? @ -No Were any procedures done? @ -No Diagnosis/symptom? @ -Dental infection Acute, or Chronic, or Acute on Chronic? @ -Acute Uncomplicated (without systemic symptoms) or Complicated (systemic symptoms)? @ -Uncomplicated Side effects of treatment? @ -No Exacerbation, Progression, or Severe Exacerbation? @ -No Poses a threat to life or bodily function? How? (Chest pain, [place], [place], pneumonia, PE, COPD, DKA, ARF, appy, cholecystitis, CVA, Diverticulitis, Homicidal, Suicidal, threat to staff... and all critical care pts) @ -No Disposition Clinical Impression: Dental infection Disposition: HOME SELF-CARE Condition: Stable Instructions (If sedation given, give patient instructions): Toothache (ED) Additional Instructions: Please return to the Emergency Department if symptoms worsen or any other concerns. Prescriptions: Amoxic-Pot Clav 875-125Mg [Augmentin 875-125] 1 tab PO Q12HR #20 tab Ibuprofen [Motrin] 600 mg PO Q8HR PRN #20 tab PRN Reason: Pain Ondansetron Odt [Zofran Odt] 4 mg PO Q8HR PRN #10 tab PRN Reason: Nausea Is patient prescribed a controlled substance at d/c from ED?: No Referrals: Barry Cabral DO [Primary Care Provider] - 1-2 days Time of Disposition: 23:24
[2024-03-09 23:30] VITALS: BP 131/73; PULSE 59; RESP 20; TEMP 98
[2024-03-09] MEDS: ACET/COD 300 MG/30 MG STARTER PACK 6 TAB BTL PO STA (23:30)
[2024-03-09] MEDS: ONDANSETRON 4 MG ODT STARTER PACK 2 TAB BTL PO STA (23:30)
[2024-03-09] MEDS: AMOXIC-POT CLAV 875MG STARTER PACK 2 TAB BTL PO STA (23:31)
[2024-03-09] MEDS: HYDROcodone/APAP 5-325MG 1 EACH TAB PO STA (23:31)
== END 2024-03-09 23:55 | disposition home or self-care (01) ==
LOC: EC 23:15
CPT/HCPCS: 99283

== ENCOUNTER 2024-06-13 15:01 | Emergency (ER) | payer OTHER ==
[2024-06-13 15:50] VITALS: RESP 18
--- NOTE | 2024-06-13 16:36 | ED ---
URI HPI - General Source: patient, RN notes reviewed Mode of arrival: ambulatory Limitations: no limitations - History of Present Illness MD Complaint: fever, cough, nasal congestion Onset/Timin -: days(s) <Reed Zavala - Last Filed: 06/13/24 16:35> <Marcelo Banegas - Last Filed: 06/14/24 22:43> - General Chief Complaint: Upper Respiratory Infection Stated Complaint: ESVIN-poss covid Time Seen by Provider: 06/13/24 15:14 - History of Present Illness Initial Comments: Quick note: This is a 24-year-old female presenting with productive cough and congestion x 4 days. Also endorses fever and bodyaches. Endorses recent COVID sick contacts. Endorses use of Mucinex with minimal relief. (Reed Zavala) 24-year-old female presenting with chief complaint of cough and congestion. Symptoms have been ongoing for 4 days. She also was having a fever and bodyaches. She has been exposed to COVID recently. She is having no difficulty breathing, chest pain, abdominal pain, nausea, vomiting, diarrhea. (Marcelo Banegas) - Related Data Home Medications Medication Instructions Recorded Confirmed Ketorolac [Toradol] 10 mg PO Q8HR PRN 01/15/24 01/15/24 Previous Rx's Medication Instructions Recorded Acetaminophen Tab [Tylenol] 650 mg PO Q6H PRN #30 tab 01/17/24 Ibuprofen [Motrin] 600 mg PO Q6HR PRN #30 tab 01/17/24 oxyCODONE HCL [Roxicodone] 5 mg PO Q6HR PRN 3 Days #12 tab 01/17/24 Amoxic-Pot Clav 875-125Mg 1 tab PO Q12HR #20 tab 03/09/24 [Augmentin 875-125] Ibuprofen [Motrin] 600 mg PO Q8HR PRN #20 tab 03/09/24 Ondansetron Odt [Zofran Odt] 4 mg PO Q8HR PRN #10 tab 03/09/24 Allergies Allergy/AdvReac Type Severity Reaction Status Date / Time No Known Allergies Allergy Verified 06/13/24 15:50 Review of Systems ROS Other: All systems not noted in ROS Statement are negative. <Reed Zavala - Last Filed: 12/28/24 16:35> ROS Other: All systems not noted in ROS Statement are negative. <Marcelo Banegas - Last Filed: 06/14/24 22:43> ROS Statement: Those systems with pertinent positive or pertinent negative responses have been documented in the HPI. Past Medical History Past Medical History: Blood Disorder, GERD/Reflux Additional Past Medical History / Comment(s): Crohns dx. COLITIS AND POLYPS. IRON DEFICIENCY ANEMIA. History of Any Multi-Drug Resistant Organisms: None Reported Past Surgical History: Tubal Ligation Additional Past Surgical History / Comment(s): cleft pallet. colonoscopies WITH 3 POLYPS REMOVED. Past Anesthesia/Blood Transfusion Reactions: No Reported Reaction Past Psychological History: No Psychological Hx Reported Smoking Status: Former smoker Past Alcohol Use History: None Reported Past Drug Use History: None Reported - Past Family History Mother Family Medical History: No Reported History <Reed Zavala - Last Filed: 06/13/24 16:35> General Exam Limitations: no limitations <Reed Zavala - Last Filed: 06/13/24 16:35> Limitations: no limitations General appearance: alert, in no apparent distress Head exam: Present: atraumatic, normocephalic, normal inspection Eye exam: Present: normal appearance, EOMI ENT exam: Present: normal exam, normal oropharynx, mucous membranes moist Neck exam: Present: normal inspection. Absent: meningismus Respiratory exam: Present: normal lung sounds bilaterally. Absent: respiratory distress, wheezes, rales, rhonchi, stridor Cardiovascular Exam: Present: regular rate, normal rhythm, normal heart sounds. Absent: systolic murmur, diastolic murmur, rubs, gallop, clicks Neurological exam: Present: alert, oriented X3 Psychiatric exam: Present: normal affect, normal mood Skin exam: Present: warm, dry <Marcelo Banegas - Last Filed: 06/14/24 22:43> - General Exam Comments Initial Comments: Visual Physical Exam Vital signs reviewed General: Well-appearing, nontoxic, no acute distress. Head: Normocephalic, atraumatic Eyes: PERRLA, EOMI ENT: Airway patent Chest: Nonlabored breathing Skin: No visual rash, normal skin tone Neuro: Alert and oriented 3 Musculoskeletal: No gross abnormalities (Reed Zavala) Course Vital Signs 06/13/24 06/13/24 15:48 18:35 Temperature 98.3 F 98.2 F Pulse Rate 83 78 Respiratory 18 18 Rate Blood Pressure 111/63 124/79 O2 Sat by Pulse 99 98 Oximetry Medical Decision Making <Reed Zavala - Last Filed: 06/13/24 16:35> <Marcelo Banegas - Last Filed: 06/14/24 22:43> - Medical Decision Making I completed the quick note portion of this chart signed ELSA Thakur (Reed Zavala) Was pt. sent in by a medical professional or institution ([facility] She[facility], TIP STRETCHER, urgent care, hospital, or fpc...) When possible be specific @ -No Did you speak to anyone other than the patient for history (EMS, parent, family, police, friend...)? What history was obtained from this source @ -No Did you review nursing and triage notes (agree or disagree)? Why? @ -I reviewed and agree with nursing and triage notes Were old charts reviewed (outside hosp., previous admission, EMS record, old EKG, old radiological studies, urgent care reports/EKG's, fpc records)? Report findings @ -No old charts were reviewed Differential Diagnosis (chest pain, altered mental status, abdominal pain women, abdominal pain men, vaginal bleeding, weakness, fever, dyspnea, syncope, headache, dizziness, GI bleed, back pain, seizure, CVA, palpatations, mental health, musculoskeletal)? @ -Differential includes influenza, RSV, COVID, other viral URI, this is not an all-inclusive list EKG interpreted by me (3pts min.). @ -As above X-rays interpreted by me (1pt min.). @ -Chest x-ray shows no acute process CT interpreted by me (1pt min.). @ -None done U/S interpreted by me (1pt. min.). @ -None done What testing was considered but not performed or refused? (CT, X-rays, U/S, labs)? Why? @ -None What meds were considered but not given or refused? Why? @ -None Did you discuss the management of the patient with other professionals (professionals i.e. [facility] Sheehan, TIP STRETCHER, lab, RT, psych nurse, social work program coordinator, log feeder, teacher, national service officer, director of casework department)? Give summary @ -No Was smoking cessation discussed for >3mins.? @ -No Was critical care preformed (if so, how long)? @ -No Were there social determinants of health that impacted care today? How? (Homele ssness, low income, unemployed, alcoholism, drug addiction, transportation, low edu. Level, literacy, decrease access to med. care, long term, rehab)? @ -No Was there de-escalation of care discussed even if they declined (Discuss DNR or withdrawal of care, Hospice)? DNR status @ -No What co-morbidities impacted this encounter? (DM, HTN, Smoking, COPD, CAD, Cancer, CVA, ARF, Chemo, Hep., AIDS, mental health diagnosis, sleep apnea, morbid obesity)? @ -None Was patient admitted / discharged? Hospital course, mention meds given and route, prescriptions, significant lab abnormalities, going to OR and other pertinent info. @ -24-year-old female presenting with chief complaint of cough and congestion. Recently exposed to COVID. History physical examination are conducted. Chest x-ray is negative and she is negative for influenza, RSV, COVID. She is educated on today's findings and supportive management at home. Follow-up with PCP. Report back to ER with any new or worsening symptoms. Discussed return parameters and answered all questions. Patient conveyed verbal understanding and agreed to the plan. I discussed this case in detail with my attending Dr. Garcia Undiagnosed new problem with uncertain prognosis? @ -No Drug Therapy requiring intensive monitoring for toxicity (Heparin, Nitro, Insulin, Cardizem)? @ -No Were any procedures done? @ -No Diagnosis/symptom? @ -URI Acute, or Chronic, or Acute on Chronic? @ -Acute Uncomplicated (without systemic symptoms) or Complicated (systemic symptoms)? @ -Uncomplicated Side effects of treatment? @ -No Exacerbation, Progression, or Severe Exacerbation? @ -No Poses a threat to life or bodily function? How? (Chest pain, [place], [place], pneumonia, PE, COPD, DKA, ARF, appy, cholecystitis, CVA, Diverticulitis, Homicidal, Suicidal, threat to staff... and all critical care pts) @ -No (Marcelo Banegas) - Lab Data Lab Results 06/13/24 Range/Units 15:51 Influenza Type A (PCR) Not Detected (Not Detectd) Influenza Type B (PCR) Not Detected (Not Detectd) RSV (PCR) Not Detected (Not Detectd) SARS-CoV-2 (PCR) Not Detected (Not Detectd) Disposition <Reed Zavala - Last Filed: 06/13/24 16:35> Is patient prescribed a controlled substance at d/c from ED?: No Time of Disposition: 18:20 <Marcelo Banegas - Last Filed: 06/14/24 22:43> Clinical Impression: URI (upper respiratory infection) Disposition: HOME SELF-CARE Condition: Good Instructions (If sedation given, give patient instructions): Upper Respiratory Infection (ED) Additional Instructions: Follow-up with PCP. Report back to ER with any new or worsening symptoms. Referrals: Barry Cabral DO [Primary Care Provider] - 1-2 days
--- NOTE | 2024-06-13 18:07 | XR ---
EXAMINATION TYPE: XR chest 2V DATE OF EXAM: 06/13/2024 5:36 PM COMPARISON: Chest radiographs from 11/19/2018 CLINICAL INDICATION: Female, 24 years old with history of Cough, fever; TECHNIQUE: XR chest 2V Frontal and lateral views of the chest. FINDINGS: Lungs/Pleura: There is no evidence of pleural effusion, focal consolidation, or pneumothorax. Pulmonary vascularity: Unremarkable. Heart/mediastinum: Cardiomediastinal silhouette is unremarkable. Musculoskeletal: No acute osseous pathology. IMPRESSION: No acute cardiopulmonary disease/process. [facility], , 06/13/2024 6:05 PM
[2024-06-13 18:37] VITALS: BP 124/79; PULSE 78; TEMP 98.2
== END 2024-06-13 18:56 | disposition home or self-care (01) ==
LOC: EC 15:01
DX: J06.9 Acute upper respiratory infection, unspecified (principal); Z87.891 Personal history of nicotine dependence
CPT/HCPCS: 71046; 87636; 99283

== ENCOUNTER 2024-07-17 16:11 | Emergency (ER) | payer OTHER ==
[2024-07-17 16:19] VITALS: RESP 16
[2024-07-17] MEDS: ACETAMINOPHEN TAB 500 MG TAB PO STA (17:09)
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
--- NOTE | 2024-07-17 17:17 | XR ---
EXAMINATION TYPE: XR knee complete RT DATE OF EXAM: 07/17/2024 5:08 PM INDICATION: Patient age:Female; 24 years old; Reason for study: right knee injury; PHH. pain COMPARISON: None. TECHNIQUE: The Right knee(s) was examined in Frontal, lateral and oblique projections. FINDINGS: No evidence of any acute osseous pathology, soft tissue swelling, or joint effusion is no citlalli. IMPRESSION: No acute osseous pathology. [facility], , 07/17/2024 5:14 PM
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
[2024-07-17 18:32] VITALS: BP 109/84; PULSE 81; TEMP 97.8
== END 2024-07-17 18:40 | disposition home or self-care (01) ==
LOC: EC 16:11
DX: S80.00XA Contusion of unspecified knee, initial encounter (principal); R07.9 Chest pain, unspecified; Z87.891 Personal history of nicotine dependence; W22.8XXA Striking against or struck by other objects, initial encounter; V49.40XA Driver injured in collision with unspecified motor vehicles in traffic accident, initial encounter; Y92.410 Unspecified street and highway as the place of occurrence of the external cause
CPT/HCPCS: 71046; 93005; 99284